=== PATIENT | male | born 1970 | race Caucasian/White ===

== ENCOUNTER 2016-11-15 15:16 | Emergency (ER) | payer MEDICARE ==
[~2016-11-15] VITALS: Ht 177.8 cm; Wt 89.3 kg
[~2016-11-15 15:16] MED LIST: AMOX875T2 PO; BACT2OIN10 TOP; BENA25CA2 PO; BENZ-52 PO; CETIRIZINE PO; CIPR-249 PO; CLON0.5T PO; COLA100C2 OR; Cogentin PO; FLUP10TA PO; FLUP25VL IM; FLUP5TA PO; KLON0.5T PO; MUPI30CR TOP; NICO21DI4 TD; PRED20TAB PO; PROAAER10 IN; RANI15TA PO; RISP4TAB OR; TRAZ50TA OR; TRAZ50TA11 PO; ZITH250T PO; [UNRECOGNIZED DRUG - CODE] TOP; [UNRECOGNIZED DRUG - CODE] TOP; [UNRECOGNIZED DRUG - OTHER] TOP; prolixin PO; prolixin decanoate IM
[2016-11-15 15:20] VITALS: BP 131/81
[2016-11-15] MEDS ORDERED: LOTR1CRE3 EXT (16:34)
[2016-11-15] MEDS ORDERED: LAMI1SPR EX (16:40)
== END 2016-11-15 17:49 | disposition home or self-care (01) ==
LOC: M ED 15:16
DX: B35.3 Tinea pedis (principal); Z76.0 Encounter for issue of repeat prescription; F41.9 Anxiety disorder, unspecified; F33.9 Major depressive disorder, recurrent, unspecified; F20.9 Schizophrenia, unspecified; F17.210 Nicotine dependence, cigarettes, uncomplicated; Z79.899 Other long term (current) drug therapy; Z88.8 Allergy status to other drugs, medicaments and biological substances

== ENCOUNTER 2016-12-01 04:43 | Inpatient (IN) | payer MEDICARE ==
[~2016-12-01 04:43] MED LIST changes: +LAMI1SPR EX; +LOTR1CRE3 EXT
[2016-12-01 07:08] LABS: MEAN CORPUSCULAR HEMOGLOBIN 31.1 pg (27.0-33.0); MEAN CORPUSCULAR HGB CONC 34.7 g/dl (32.0-36.5); MEAN CORPUSCULAR VOLUME 89.6 fl (80.0-96.0); RED CELL DISTRIBUTION WIDTH 13.1 % (11.5-14.5); WHITE BLOOD COUNT 15.9 K/mm3 (4.0-10.0)
[2016-12-01 07:27] LABS: ALBUMIN/GLOBULIN RATIO 1.29 (1.00-1.93); ALKALINE PHOSPHATASE 61 U/L (45-117); ALT/SGPT 14 U/L (12-78); ANION GAP 7 MEQ/L (8-16); AST/SGOT 13 U/L (15-37); BILIRUBIN,DIRECT 0.2 MG/DL (0.0-0.2); BILIRUBIN,TOTAL 1.2 MG/DL (0.2-1.0); BLOOD UREA NITROGEN 5 MG/DL (7-18); CALCIUM LEVEL 9.4 MG/DL (8.5-10.1); CARBON DIOXIDE LEVEL 28 MEQ/L (21-32); CHLORIDE LEVEL 102 MEQ/L (98-107); CREATININE FOR GFR 0.66 MG/DL (0.70-1.30); GLOMERULAR FILTRATION RATE > 60.0 (>60); GLUCOSE, FASTING 89 MG/DL (70-105); POTASSIUM SERUM 4.1 MEQ/L (3.5-5.1); SODIUM LEVEL 137 MEQ/L (136-145); TOTAL PROTEIN 7.1 GM/DL (6.4-8.2)
[2016-12-01] MEDS ORDERED: fluPHENAZine DECAN 25MG/ML 5ML VIAL (J2680) IM SCH (09:00)
[2016-12-01 09:53] LABS: METHADONE URINE NEGATIVE (NEGATIVE)
[2016-12-01 11:51] VITALS: BP 142/82
[2016-12-01] MEDS ORDERED: BENZTROPINE 2 MG TAB PO PRN (12:15)
[2016-12-01] MEDS ORDERED: LORazepam 2 MG TAB PO PRN (12:30)
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
[2016-12-01] MEDS ORDERED: MOM 30ML SUSPENSION UDC PO PRN (12:45)
[2016-12-01] MEDS ORDERED: traZODone 50 MG TAB PO PRN (12:45)
[2016-12-01] MEDS ORDERED: ACETAMINOPHEN TAB 650MG DOSE (2X325MG) PO PRN (12:45)
[2016-12-01] MEDS ORDERED: MAALOX 30 ML SUSP *UDC PO PRN (12:45)
[2016-12-01] MEDS: NICOTINE 21MG/24HR 1 EA TRANSDERMAL TD SCH (13:22)
[2016-12-01] MEDS: LOTRISONE CREAM 15 GM (BETAMETH/CLOTRIMAZOLE) TOP SCH (23:33)
[2016-12-02 06:31] VITALS: BP 130/60
[2016-12-02] MEDS: NICOTINE 21MG/24HR 1 EA TRANSDERMAL TD SCH (08:43)
[2016-12-02] MEDS: LOTRISONE CREAM 15 GM (BETAMETH/CLOTRIMAZOLE) TOP SCH ×2 (08:44→20:29)
[2016-12-02 18:00] VITALS: BP 117/81
[2016-12-03 07:00] VITALS: BP 103/57
[2016-12-03] MEDS: NICOTINE 21MG/24HR 1 EA TRANSDERMAL TD SCH (09:00)
[2016-12-03] MEDS: LOTRISONE CREAM 15 GM (BETAMETH/CLOTRIMAZOLE) TOP SCH ×2 (09:00→20:37)
[2016-12-03 18:00] VITALS: BP 116/79
--- NOTE | 2016-12-03 21:50 | HPE ---
DATE OF ADMISSION: 12/01/2016 HISTORY OF PRESENT ILLNESS: Please refer to psychiatric history and evaluation for further details on this admission. This examination and history is intended for medical issues, which may need treatment, followup or consult on this 46-year-old male. ALLERGIES: HALDOL. PRIMARY CARE PROVIDER: None currently. SOCIAL HISTORY: He is single, lives alone. He smokes 1-2 packs of cigarettes per day. Recreational drug use: Marijuana. LABORATORY STUDIES: WBC 15.9, hemoglobin 17.1, hematocrit 49.2, platelets 26.5. Electrolytes were normal. Total bilirubin was 1.2, direct bilirubin 0.2, BUN 5, creatinine 0.66. Urine was positive for marijuana. PAST MEDICAL HISTORY: Schizoaffective disorder. PAST SURGICAL HISTORY: Negative. HOME MEDICATIONS: - Cogentin 1 mg by mouth twice a day - trazodone 50 mg by mouth nightly as needed for insomnia - Prolixin 5 mg by mouth twice a day - Prolixin 37.5 mg intramuscularly (IM) every 2 weeks FAMILY HISTORY: Mother of unknown cancer. Father unknown age and unknown cause. He has siblings alive and well. REVIEW OF SYSTEMS: 10-system review was done. His only complaint was of a rash on both feet. Otherwise unremarkable. OBJECTIVE: 46-year-old cooperative male in no acute distress. Height 70 inches. Blood pressure 116/66, pulse 80, respirations 18, temperature 97.6. Patient is alert and oriented times three, slightly disheveled. Pupils equal and react to light. Extraocular muscles intact. Cornea and sclerae clear. Conjunctivae were normal. No facial asymmetry. Pharynx, tongue and gums pink and moist. Tongue is midline. Neck is supple without lymphadenopathy. No thyromegaly, no goiter. Carotids 2+ without bruit. Chest clear to auscultation without wheeze or retraction. Heart is regular. Abdomen is benign. Bowel sounds positive. Genitourinary/rectal: Not done. Extremities show equal strength, full range of motion. No cyanosis, clubbing or edema. Feet show bilateral red slightly vesicular rash on both feet, top of feet and between toes, no drainage. Peripheral pulses equal and palpable bilaterally. IMPRESSION/PLAN: 1. Psychiatric plan per psychiatry. 2. Tinea pedis bilaterally. Lotrisone cream bilaterally to rash on both feet twice a day after washing with soap and water and drying well. Monitor for improvement. 3. Nicotine patch offered. Baseline EKG pending.
--- NOTE | 2016-12-03 23:32 | IPN ---
DATE OF SERVICE: 12/02/2016 CHIEF COMPLAINT: Says feels better. SUBJECTIVE: Seen for followup in the presence of staff. Says feels better, was somewhat vague about it at times, but does say he had gone off his medications several months ago, says he felt he did not need them, and then began feeling ill, says feels more rested. Denies he was ever suicidal, though that is contrary to what has been seen per the emergency room record. MENTAL STATUS EXAMINATION: He is unkempt, somewhat superficially cooperative, is guarded, currently no agitation, no psychomotor retardation. Answers questions briefly, but logically, varied range of affect, fairly broad. At present does not appear to be internally preoccupied. Possibly deluded, though is not quite clear, seems paranoid. Cognition grossly intact. Judgment, insight remain poor. ASSESSMENT: Schizophrenia. PLAN: Continue current care and observations, and treatment, look at obtaining collateral information, engage him in treatment in the unit. He has been on Prolixin Decanoate in the past, this is being resumed here, he received an injection yesterday, for 37.5 mg daily. Oral Prolixin has also been started 5 mg twice a day. Further recommendations will be made depending on the clinical picture. I would suggest obtaining collateral information if possible. VITAL SIGNS: Blood pressure 130/60, pulse 74, temperature 99.
--- NOTE | 2016-12-03 23:41 | ECGEPIP ---
Stationary ECG Study [facility] Test Date: 2016-12-02 Pat Name: CODIE CABRALES Department: Room: [place] [address] Gender: M Technician Inventory Specialist: DANII : 1970 Requested By: Meli Anderson [facility] Order Number: [id number] Reading MD: Nigel Cooper Measurements Intervals [place] Rate: 75 P: 44 VA: 184 QRS: -12 QRSD: 104 T: 58 QT: 352 QTc: 395 Interpretive Statements SINUS RHYTHM COMPARED TO THE LAST 2 TRACINGS IN THE SYSTEM IN 2014, NO SIGNIFICANT CHANGES Electronically Signed On 12-03-2016 23:40:47 EDT by Nigel Cooper
[2016-12-04 07:22] VITALS: BP 113/72
[2016-12-04] MEDS: NICOTINE 21MG/24HR 1 EA TRANSDERMAL TD SCH (08:36)
[2016-12-04] MEDS: LOTRISONE CREAM 15 GM (BETAMETH/CLOTRIMAZOLE) TOP SCH ×2 (08:36→20:05)
--- NOTE | 2016-12-04 09:30 | IPN ---
DATE: 12/03/2016 CHIEF COMPLAINT: Says is doing well. SUBJECTIVE: Seen for followup in the presence of self, say feels better, more rested. Says had a good night sleep, had breakfast. MENTAL STATUS EXAMINATION: Guarded, but cooperative overall. Coherent. Gives short answers. No agitation. No psychomotor retardation. Currently does not appear internally preoccupied. Judgment remains compromised. Insight improved. ASSESSMENT: Schizophrenia. PLAN: Continue current care, including the Prolixin. Says he was off the Prolixin for a good few months, including injection, and that had been on the injections regularly prior to that, was being seen at the [facility]. Encourage participation and activities in the unit.
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
[2016-12-04 18:16] VITALS: BP 102/64
[2016-12-05 06:22] VITALS: BP 116/73
[2016-12-05] MEDS: LOTRISONE CREAM 15 GM (BETAMETH/CLOTRIMAZOLE) TOP SCH (08:33)
[2016-12-05] MEDS: NICOTINE 21MG/24HR 1 EA TRANSDERMAL TD SCH (08:33)
[2016-12-05] MEDS ORDERED: FLUP5TA PO (09:10)
[2016-12-05] MEDS ORDERED: TRAZO50TA PO (09:10)
[2016-12-05] MEDS ORDERED: FLUP25VL IM (09:10)
--- NOTE | 2016-12-05 15:15 | MHDSPDOC ---
[facility] Discharge Summary Discharge Summary DATE OF ADMISSION: Dec 01, 2016 at 10:28 DATE OF DISCHARGE: Dec 05, 2016 at 10:20 DISCHARGE DIAGNOSES: REASON FOR ADMISSION: pt presented to the ED very psychotic, illogical, nonsensical, disorganized asking for medication. Pt admitted due to potential danger to self or others. CONSULTANTS INVOLVED: lab, medicine, psychiatry. TREATMENT AND PROGRESS ON THE UNIT : The very first day pt accepted Prolixin dec 37.5 mg IM and took Prolixin 5 mg bid for the duration of his stay. He was pretty clear mentally by Sunday. He was far better than he was on Sunday when he talked about splitting the atom, being a lei knife and I'm inside of you. He slept well, took care of hygiene. Shaved face and head. He ate at meal time, did his laundry and adhered to the unit protocols. No behavior challenges. On Sunday he was able to supply information that we were not able to obtain on Sunday. Pt has a long h/o going off his psychiatric medications and decompensating into psychosis. He was educated on the need to remain consistent with medication and to keep his outpatient appts at [facility]. Pt says he should be more consistent as he lives right up the street from the clinic. Pt could not supply any names or address for us to obtain collateral information. he has no contact with his ex- and does not know if she is alive or not. He sees his daughter from [place] once a year. He is close to his downstairs neighbor but does not identify any other close friend. He is vague about how he spends his time, going to the store and hanging out. He denies use of alcohol but does smoke cannabis when available to him. Pt does not have the best housing arrangement per his statements but he declined offers to help with referrals to [facility] or other housing. Pt was offered a referral for addictions treatment related to cannabis dependency but he is not interested at this time. HOSPITAL COURSE: Pt received decanoate injection the first day of admission. he slept and took care of hygiene needs. he cleared rather quickly and was visible in the milieu. He identifies as a "loner" and was not observed interacting with peers. He was appropriate when interacting with staff and did attend some programming groups. Pts FOI and lose associations dissipated and he began to speak much more logically and sensibly. He became more reality based in his statements. He denies any statements that may cause one to think he was suicidal. He denies making suicide attempts in the past. Pt plans to return home where he lives alone and continue his usual routine. DISCHARGE ASSESSMENT: Pt was stabilized quickly and requested discharge immediately. He was found to be much more sane after 3 days on the unit and on medication. His decanoate is onboard and he has po prolixin to use as needed for psychosis. He stated he likes to have Prolixin on hand. We discussed other medications, other SAAVEDRA but he declined stating "Prolixin is what works for me". We reviewed s/s of EPS. he stated he does not like how he feels when he is on Cogentin. he did not want a prescription for Cogentin on discharge. he was offered Artane or Benadryl but he declined those as well. MENTAL STATUS EXAMINATION ON DISCHARGE: Patient is a 46-year old male, who appears older than age, bald head, clean shaven, wearing shorts and bright orange T-shirt. Appears clean and calm. Speech is clear spontaneous Language skills are intact Thought processes including: linear, he did not derail today as he did yesterday during our 1;1 conversation. Thought content: appropriate Abstract reasoning, and computation: good. Description of associations: good. Description of abnormal or psychotic thoughts: No SI or HI present, no longer hearing voices, no FOI or IOR, no delusions or somatic complaints. Judgment: limited Insight: limited. Orientation to person, place,situation and time. Recent and remote memory: intact. Attention span and concentration: adequate. Fund of knowledge: full. Mood: euthymic. Affect:congruent. MEDICATIONS ON DISCHARGE: -prolixin 5mg po prn psychosis, bid #14/5 -Prolixin Decanoate 37.5 mg IM q 14 days due on 12/15/16 -trazodone 50 mg po prn insomnia #7 with 5 refills. PLAN/FOLLOWUP ARRANGEMENTS: BENNY The amount of time spent in the coordination of care for this patient was approximately 30 minutes. Vital Signs/I&Os Vital Signs Date Time Temp Pulse Resp B/P (MAP) Pulse Ox O2 Delivery O2 Flow Rate FiO2 12/05/16 06:22 97.8 67 18 116/73 (87) 12/04/16 07:22 Room Air 12/01/16 11:23 98 Medications Scheduled Fluphenazine Decanoate (Fluphenazine Decanoate) 25 Mg/Ml Soln, 37.5 MG IM Q2WK for Thought Disorder, (Reported) Fluphenazine Decanoate (Fluphenazine Decanoate) 25 Mg/Ml Soln, 37.5 MG IM Q14D@ 09 for MOOD for 14 Days, #1 Last shot administered on December 01. Next injection due on December. Fluphenazine HCl (Fluphenazine HCl) 5 Mg Tab, 5 MG PO BID for Thought Disorder, (Reported) Fluphenazine HCl (Fluphenazine HCl) 5 Mg Tab, 5 MG PO BID for MOOD for 7 Days, # 14 take as needed for psychosis since the shot is ordered. If having psychosis take by mouth. Terbinafine HCl (Lamisil At [place]) 1 % Spr, 1 % EX DAILY for 14 Days, #1 Scheduled PRN Trazodone HCl (Trazodone HCl) 50 Mg Tab, 50 MG PO QHSP PRN for INSOMNIA, ( Reported) Trazodone HCl (Trazodone HCl) 50 Mg Tab, 50 MG PO QHSP PRN for INSOMNIA for 7 Days, #7 take as needed for insomnia Allergies Coded Allergies: Haloperidol (Verified Allergy, Unknown, 08/13/12) Aria Haq Dec 05, 2016 15:15
== END 2016-12-05 10:20 | disposition home or self-care (01) | DRG 885 ==
LOC: M ED 04:43 → M ED INP 10:28 → M PSY 11:45
PROVIDERS: ADMIT Psychiatry & Neurology Psychiatry; ATTEND Psychiatry & Neurology Psychiatry
DX: F20.0 Paranoid schizophrenia (principal); F17.210 Nicotine dependence, cigarettes, uncomplicated; F12.10 Cannabis abuse, uncomplicated; Z88.8 Allergy status to other drugs, medicaments and biological substances; Z79.899 Other long term (current) drug therapy; B35.3 Tinea pedis

== ENCOUNTER 2017-08-30 14:36 | Inpatient (IN) | payer MEDICARE, SELFPAY ==
[2017-08-30] MEDS: diphenhydrAMINE INJ 50MG/ML VIAL (J1200) IM (14:45)
[2017-08-30] MEDS: LORazepam 2 MG/ML VIAL (J2060) IM (14:45)
[2017-08-30] MEDS: OLANZapine INTRAMUSCULAR 10 MG VIAL (S0166) IM (14:45)
[2017-08-30 15:34] LABS: HEMATOCRIT 48.3 % (42.0-52.0); HEMOGLOBIN 16.5 g/dl (13.5-17.5); MEAN CORPUSCULAR HEMOGLOBIN 29.6 pg (27.0-33.0); MEAN CORPUSCULAR HGB CONC 34.2 g/dl (32.0-36.5); MEAN CORPUSCULAR VOLUME 86.6 fl (80.0-96.0); PLATELET COUNT, AUTOMATED 298 10^3/uL (150-450); RED BLOOD COUNT 5.58 10^6/uL (4.30-6.10); RED CELL DISTRIBUTION WIDTH 13.1 % (11.5-14.5)
[2017-08-30 16:08] LABS: ACETAMINOPHEN LEVEL < 2.0 UG/ML (10.0-30.0); ALBUMIN 3.9 GM/DL (3.2-5.2); ALBUMIN/GLOBULIN RATIO 1.15 (1.00-1.93); ALKALINE PHOSPHATASE 69 U/L (45-117); ALT/SGPT 20 U/L (12-78); ANION GAP 8 MEQ/L (8-16); AST/SGOT 14 U/L (7-37); BILIRUBIN,DIRECT 0.1 MG/DL (0.0-0.2); BILIRUBIN,TOTAL 0.8 MG/DL (0.2-1.0); BLOOD UREA NITROGEN 10 MG/DL (7-18); CALCIUM LEVEL 9.2 MG/DL (8.5-10.1); CARBON DIOXIDE LEVEL 27 MEQ/L (21-32); CHLORIDE LEVEL 107 MEQ/L (98-107); CREATININE FOR GFR 0.98 MG/DL (0.70-1.30); GLOMERULAR FILTRATION RATE > 60.0 (>60); GLUCOSE, FASTING 147 MG/DL (70-100); POTASSIUM SERUM 3.9 MEQ/L (3.5-5.1); SALICYLATE LEVEL < 1.7 MG/DL (5.0-30.0); SODIUM LEVEL 142 MEQ/L (136-145); THYROID STIMULATING HORMONE 0.814 uIU/ML (0.358-3.740); TOTAL PROTEIN 7.3 GM/DL (6.4-8.2)
[2017-08-30 16:12] LABS: ETHYL ALCOHOL (ETHANOL) < 0.003 % (0.000-0.010)
[2017-08-30 17:23] LABS: AMPHETAMINES LEVEL URINE NEGATIVE (NEGATIVE); BARBITURATES URINE NEGATIVE (NEGATIVE); BENZODIAZEPINES URINE NEGATIVE (NEGATIVE); CANNABINOIDS URINE POSITIVE (NEGATIVE); COCAINE METABOLITE URINE NEGATIVE (NEGATIVE); METHADONE URINE NEGATIVE (NEGATIVE); OPIATES URINE NEGATIVE (NEGATIVE); PHENCYCLIDINE URINE NEGATIVE (NEGATIVE)
[2017-08-30] MEDS ORDERED: MOM 30ML SUSPENSION UDC PO (18:30)
[2017-08-30] MEDS ORDERED: ACETAMINOPHEN TAB 650MG DOSE (2X325MG) PO (18:30)
[2017-08-30] MEDS ORDERED: MAALOX 30 ML SUSP *UDC PO (18:30)
[2017-08-30] MEDS ORDERED: traZODone 50 MG TAB PO (18:30)
[2017-08-31] MEDS: OLANZapine 5 MG TAB PO (09:32)
[2017-08-31] MEDS: diphenhydrAMINE 50 MG CAP PO (09:32)
[2017-08-31] MEDS: LORazepam 2 MG TAB PO (09:32)
[2017-08-31] MEDS ORDERED: OLANZapine ORAL DISINTEGRATING TAB 5MG PO (11:30)
[2017-08-31] MEDS ORDERED: diphenhydrAMINE 25 MG CAP PO (11:30)
[2017-08-31] MEDS: fluPHENAZine DECAN 25MG/ML 5ML VIAL (J2680) IM (13:06)
[2017-08-31] MEDS: BENZTROPINE 1 MG TAB PO ×2 (13:07→21:00)
[2017-09-01] MEDS: BENZTROPINE 1 MG TAB PO ×2 (09:00→20:49)
[2017-09-02] MEDS: BENZTROPINE 1 MG TAB PO ×2 (09:00→19:57)
[2017-09-02] MEDS: LORazepam 1 MG TAB PO (11:03)
[2017-09-02] MEDS: LORazepam 2 MG TAB PO ×2 (16:56→23:00)
[2017-09-02] MEDS: NICOTINE 21MG/24HR 1 EA TRANSDERMAL TD (17:56)
[2017-09-03] MEDS: NICOTINE 21MG/24HR 1 EA TRANSDERMAL TD (08:12)
[2017-09-03] MEDS: BENZTROPINE 1 MG TAB PO ×2 (08:13→20:42)
[2017-09-03 09:43] LABS: KETONE, URINE AUTO RFX NEGATIVE (NEGATIVE); LEUKOCYTE ESTERASE UR AUTO RFX NEGATIVE (NEGATIVE); NITRITE, URINE AUTO RFX NEGATIVE (NEGATIVE); RBC, URINE AUTO RFX 0 /HPF (0-3); SPECIFIC GRAVITY UR AUTO RFX 1.014 (1.002-1.035); SQUAM EPITHELIAL CELL UR AURFX 0 /HPF (0-6); WBC, URINE AUTO RFX 2 /HPF (0-3)
[2017-09-03] MEDS: LORazepam 2 MG TAB PO (17:39)
[2017-09-04] MEDS: BENZTROPINE 1 MG TAB PO (09:00)
[2017-09-04] MEDS: NICOTINE 21MG/24HR 1 EA TRANSDERMAL TD (09:00)
== END 2017-09-04 10:50 | disposition home or self-care (01) | DRG 885 ==
LOC: M ED 14:36 → M ED INP 18:29 → M PSY 19:12
DX: F20.0 Paranoid schizophrenia (principal); F12.90 Cannabis use, unspecified, uncomplicated; F41.9 Anxiety disorder, unspecified; F17.200 Nicotine dependence, unspecified, uncomplicated; D72.829 Elevated white blood cell count, unspecified; Z88.8 Allergy status to other drugs, medicaments and biological substances

== ENCOUNTER 2018-01-04 02:26 | Inpatient (IN) | payer MEDICARE, SELFPAY ==
[2018-01-04 02:44] LABS: HEMATOCRIT 43.7 % (42.0-52.0); MEAN CORPUSCULAR HEMOGLOBIN 29.9 pg (27.0-33.0); MEAN CORPUSCULAR HGB CONC 34.3 g/dl (32.0-36.5); MEAN CORPUSCULAR VOLUME 87.2 fl (80.0-96.0); PLATELET COUNT, AUTOMATED 324 10^3/uL (150-450); RED BLOOD COUNT 5.01 10^6/uL (4.30-6.10); RED CELL DISTRIBUTION WIDTH 12.7 % (11.5-14.5); WHITE BLOOD COUNT 21.3 10^3/uL (4.0-10.0)
[2018-01-04 03:06] LABS: AMPHETAMINES LEVEL URINE NEGATIVE (NEGATIVE); BARBITURATES URINE NEGATIVE (NEGATIVE); BENZODIAZEPINES URINE NEGATIVE (NEGATIVE); CANNABINOIDS URINE POSITIVE (NEGATIVE); COCAINE METABOLITE URINE NEGATIVE (NEGATIVE); METHADONE URINE NEGATIVE (NEGATIVE); OPIATES URINE NEGATIVE (NEGATIVE); PHENCYCLIDINE URINE NEGATIVE (NEGATIVE)
[2018-01-04 03:14] LABS: ALBUMIN 4.2 GM/DL (3.2-5.2); ALBUMIN/GLOBULIN RATIO 1.24 (1.00-1.93); ALKALINE PHOSPHATASE 83 U/L (45-117); ALT/SGPT 22 U/L (12-78); ANION GAP 12 MEQ/L (8-16); AST/SGOT 25 U/L (7-37); BILIRUBIN,DIRECT 0.3 MG/DL (0.0-0.2); BILIRUBIN,TOTAL 1.2 MG/DL (0.2-1.0); BLOOD UREA NITROGEN 13 MG/DL (7-18); CALCIUM LEVEL 9.4 MG/DL (8.5-10.1); CARBON DIOXIDE LEVEL 27 MEQ/L (21-32); CHLORIDE LEVEL 102 MEQ/L (98-107); CREATININE FOR GFR 1.03 MG/DL (0.70-1.30); ETHYL ALCOHOL (ETHANOL) 0.004 % (0.000-0.010); GLOMERULAR FILTRATION RATE > 60.0 (>60); GLUCOSE, FASTING 128 MG/DL (70-100); POTASSIUM SERUM 3.5 MEQ/L (3.5-5.1); SALICYLATE LEVEL < 1.7 MG/DL (5.0-30.0); SODIUM LEVEL 141 MEQ/L (136-145); TOTAL PROTEIN 7.6 GM/DL (6.4-8.2)
[2018-01-04 03:15] LABS: ACETAMINOPHEN LEVEL < 2.0 UG/ML (10.0-30.0)
[2018-01-04] MEDS ORDERED: traZODone 50 MG TAB PO (04:30)
[2018-01-04] MEDS ORDERED: MAALOX 30 ML SUSP *UDC PO (04:30)
[2018-01-04] MEDS ORDERED: OLANZapine ORAL DISINTEGRATING TAB 5MG PO (04:30)
[2018-01-04] MEDS ORDERED: NICOTINE 21MG/24HR 1 EA TRANSDERMAL TD (04:30)
[2018-01-05] MEDS: fluPHENAZine DECAN 25MG/ML 5ML VIAL (J2680) IM (07:54)
[2018-01-06] MEDS: MOM 30ML SUSPENSION UDC PO (13:40)
[2018-01-06] MEDS: ACETAMINOPHEN TAB 650MG DOSE (2X325MG) PO (21:32)
[2018-01-06] MEDS: IBUPROFEN 800 MG TAB PO (22:37)
[2018-01-07] MEDS: ACETAMINOPHEN TAB 650MG DOSE (2X325MG) PO (11:08)
[2018-01-07] MEDS: IBUPROFEN 800 MG TAB PO ×2 (12:37→18:29)
[2018-01-07] MEDS: MAGNESIUM CITRATE 300 ML BTL PO (12:58)
[2018-01-07 16:27] LABS: APPEARANCE, URINE CLEAR (CLEAR); BACTERIA, URINE AUTO NEGATIVE (NEGATIVE); BILIRUBIN, URINE AUTO NEGATIVE (NEGATIVE); BLOOD, URINE BLOOD NEGATIVE (NEGATIVE); COLOR, URINE STRAW (YELLOW); GLUCOSE, URINE (UA) AUTO NEGATIVE (NEGATIVE); KETONE, URINE AUTO NEGATIVE (NEGATIVE); LEUKOCYTE ESTERASE, URINE AUTO NEGATIVE (NEGATIVE); MUCUS, URINE SMALL (NEGATIVE); NITRITE, URINE AUTO NEGATIVE (NEGATIVE); PROTEIN, URINE AUTO NEGATIVE (NEGATIVE); RBC, URINE AUTO 0 /HPF (0-3); SPECIFIC GRAVITY URINE AUTO 1.003 (1.002-1.035); SQUAMOUS EPITHELIAL CELL UR AU 0 /HPF (0-6); UROBILINOGEN, URINE AUTO 0.2 mg/dL (0.0-2.0); WBC, URINE AUTO 1 /HPF (0-3)
[2018-01-08] MEDS: IBUPROFEN 800 MG TAB PO ×3 (06:40→20:19)
[2018-01-09] MEDS: IBUPROFEN 800 MG TAB PO (06:44)
== END 2018-01-09 13:00 | disposition home or self-care (01) | DRG 885 ==
LOC: M ED 02:26 → M ED INP 04:19 → M PSY 05:33
DX: F20.0 Paranoid schizophrenia (principal); F12.90 Cannabis use, unspecified, uncomplicated; F17.200 Nicotine dependence, unspecified, uncomplicated; D72.829 Elevated white blood cell count, unspecified

== ENCOUNTER 2018-02-04 10:17 | Inpatient (IN) | payer MEDICARE, MEDICAID, SELFPAY ==
[2018-02-04 11:18] LABS: HEMATOCRIT 45.3 % (42.0-52.0); HEMOGLOBIN 15.4 g/dl (13.5-17.5); MEAN CORPUSCULAR VOLUME 88.3 fl (80.0-96.0); PLATELET COUNT, AUTOMATED 267 10^3/uL (150-450); RED BLOOD COUNT 5.13 10^6/uL (4.30-6.10); RED CELL DISTRIBUTION WIDTH 13.2 % (11.5-14.5); WHITE BLOOD COUNT 8.1 10^3/uL (4.0-10.0)
[2018-02-04 11:54] LABS: AMPHETAMINES LEVEL URINE NEGATIVE (NEGATIVE); BARBITURATES URINE NEGATIVE (NEGATIVE); BENZODIAZEPINES URINE NEGATIVE (NEGATIVE); CANNABINOIDS URINE POSITIVE (NEGATIVE); COCAINE METABOLITE URINE NEGATIVE (NEGATIVE); METHADONE URINE NEGATIVE (NEGATIVE); OPIATES URINE NEGATIVE (NEGATIVE); PHENCYCLIDINE URINE NEGATIVE (NEGATIVE)
[2018-02-04 12:06] LABS: ALBUMIN 4.1 GM/DL (3.2-5.2); ALBUMIN/GLOBULIN RATIO 1.14 (1.00-1.93); ALKALINE PHOSPHATASE 69 U/L (45-117); ALT/SGPT 16 U/L (12-78); ANION GAP 5 MEQ/L (8-16); AST/SGOT 15 U/L (7-37); BILIRUBIN,DIRECT 0.2 MG/DL (0.0-0.2); BILIRUBIN,TOTAL 0.7 MG/DL (0.2-1.0); BLOOD UREA NITROGEN 10 MG/DL (7-18); CALCIUM LEVEL 9.3 MG/DL (8.5-10.1); CARBON DIOXIDE LEVEL 30 MEQ/L (21-32); CHLORIDE LEVEL 100 MEQ/L (98-107); CREATININE FOR GFR 0.78 MG/DL (0.70-1.30); ETHYL ALCOHOL (ETHANOL) < 0.003 % (0.000-0.010); GLOMERULAR FILTRATION RATE > 60.0 (>60); GLUCOSE, FASTING 104 MG/DL (70-100); POTASSIUM SERUM 4.8 MEQ/L (3.5-5.1); SALICYLATE LEVEL 3.9 MG/DL (5.0-30.0); SODIUM LEVEL 135 MEQ/L (136-145); THYROID STIMULATING HORMONE 0.377 uIU/ML (0.358-3.740); TOTAL PROTEIN 7.7 GM/DL (6.4-8.2)
[2018-02-04 12:07] LABS: ACETAMINOPHEN LEVEL < 2.0 UG/ML (10.0-30.0)
[2018-02-04] MEDS ORDERED: MOM 30ML SUSPENSION UDC PO (15:30)
[2018-02-04] MEDS ORDERED: traZODone 50 MG TAB PO (15:30)
[2018-02-04] MEDS ORDERED: OLANZapine ORAL DISINTEGRATING TAB 5MG PO (15:30)
[2018-02-04] MEDS ORDERED: MAALOX 30 ML SUSP *UDC PO (15:30)
[2018-02-04] MEDS ORDERED: LORazepam 1 MG TAB PO (17:15)
[2018-02-04] MEDS: NICOTINE 21MG/24HR 1 EA TRANSDERMAL TD (17:35)
[2018-02-05] MEDS: ACETAMINOPHEN TAB 650MG DOSE (2X325MG) PO ×2 (09:00→15:10)
[2018-02-05] MEDS: NICOTINE 21MG/24HR 1 EA TRANSDERMAL TD (09:00)
[2018-02-05 10:23] LABS: KETONE, URINE AUTO RFX NEGATIVE (NEGATIVE); LEUKOCYTE ESTERASE UR AUTO RFX NEGATIVE (NEGATIVE); MUCUS, URINE RFX SMALL (NEGATIVE); NITRITE, URINE AUTO RFX NEGATIVE (NEGATIVE); RBC, URINE AUTO RFX 0 /HPF (0-3); SPECIFIC GRAVITY UR AUTO RFX 1.008 (1.002-1.035); SQUAM EPITHELIAL CELL UR AURFX 0 /HPF (0-6); WBC, URINE AUTO RFX 0 /HPF (0-3)
[2018-02-05 11:02] LABS: HEMATOCRIT 49.3 % (42.0-52.0); HEMOGLOBIN 16.7 g/dl (13.5-17.5); MEAN CORPUSCULAR HEMOGLOBIN 30.5 pg (27.0-33.0); MEAN CORPUSCULAR HGB CONC 33.9 g/dl (32.0-36.5); PLATELET COUNT, AUTOMATED 298 10^3/uL (150-450); RED BLOOD COUNT 5.48 10^6/uL (4.30-6.10); RED CELL DISTRIBUTION WIDTH 13.4 % (11.5-14.5); WHITE BLOOD COUNT 11.3 10^3/uL (4.0-10.0)
[2018-02-05 11:44] LABS: ALBUMIN 4.4 GM/DL (3.2-5.2); ALBUMIN/GLOBULIN RATIO 1.22 (1.00-1.93); ALKALINE PHOSPHATASE 75 U/L (45-117); ALT/SGPT 17 U/L (12-78); ANION GAP 7 MEQ/L (8-16); AST/SGOT 13 U/L (7-37); BILIRUBIN,TOTAL 0.8 MG/DL (0.2-1.0); BLOOD UREA NITROGEN 10 MG/DL (7-18); CALCIUM LEVEL 9.9 MG/DL (8.5-10.1); CARBON DIOXIDE LEVEL 31 MEQ/L (21-32); CHLORIDE LEVEL 101 MEQ/L (98-107); CREATININE FOR GFR 0.94 MG/DL (0.70-1.30); GLOMERULAR FILTRATION RATE > 60.0 (>60); GLUCOSE, FASTING 61 MG/DL (70-100); LIPASE 141 U/L (73-393); POTASSIUM SERUM 4.4 MEQ/L (3.5-5.1); SODIUM LEVEL 139 MEQ/L (136-145)
[2018-02-05] MEDS: fluPHENAZine DECAN 25MG/ML 5ML VIAL (J2680) IM (12:16)
[2018-02-06] MEDS: NICOTINE 21MG/24HR 1 EA TRANSDERMAL TD (08:16)
[2018-02-06] MEDS: ACETAMINOPHEN TAB 650MG DOSE (2X325MG) PO (08:49)
== END 2018-02-06 12:05 | disposition home or self-care (01) | DRG 885 ==
LOC: M PSY 02-06 04:05 → M ED 10:17 → M ED INP 15:27 → M PSY 16:33
DX: F20.0 Paranoid schizophrenia (principal); Z79.899 Other long term (current) drug therapy; Z88.8 Allergy status to other drugs, medicaments and biological substances; F17.200 Nicotine dependence, unspecified, uncomplicated; M54.5 Low back pain

== ENCOUNTER 2019-03-03 16:21 | Emergency (ER) | payer MEDICAID, MEDICARE ==
[~2019-03-03] VITALS: Ht 177.8 cm; Wt 87.3 kg
[~2019-03-03 16:21] MED LIST changes: +APAP325T4 PO; -CLON0.5T PO; +CLON0.5T8 PO; +NICO21PAT TD; +TRAZ-252; +TRAZ-252 PO; +TRAZ1TAB10 PO; -TRAZ50TA11 PO
[2019-03-03] MEDS ORDERED: GABA-845 (16:28)
--- NOTE | 2019-03-03 17:15 | REP ---
Two-view chest: 03/03/2019. Indication: Cough. Comparison: 01/04/2018. Findings: The lungs are clear. There is no pleural effusion or pneumothorax. The cardiomediastinal silhouette is unremarkable. Impression: Clear lungs. Electronically Signed by Donny Reid DO 03/03/2019 05:06 P
[2019-03-03] MEDS ORDERED: NS 1,000 ML IV ONE (20:00)
[2019-03-03 20:31] LABS: HEMATOCRIT 50.1 % (42.0-52.0); MEAN CORPUSCULAR HEMOGLOBIN 30.5 pg (27.0-33.0); MEAN CORPUSCULAR HGB CONC 33.9 g/dl (32.0-36.5); MEAN CORPUSCULAR VOLUME 89.9 fl (80.0-96.0); PLATELET COUNT, AUTOMATED 321 10^3/uL (150-450); RED BLOOD COUNT 5.57 10^6/uL (4.30-6.10); WHITE BLOOD COUNT 13.1 10^3/uL (4.0-10.0)
[2019-03-03 20:44] LABS: INR 1.06; PROTHROMBIN TIME 13.6 SECONDS (11.8-14.0)
[2019-03-03 20:44] LABS: INFLUENZA A AMPLIFICATION NEGATIVE (NEGATIVE); INFLUENZA B AMPLIFICATION NEGATIVE (NEGATIVE)
[2019-03-03 20:45] LABS: PARTIAL THROMBOPLASTIN TIME 33.4 SECONDS (25.0-38.4)
[2019-03-03 21:01] LABS: ALBUMIN 4.5 GM/DL (3.2-5.2); ALT/SGPT 15 U/L (12-78); BILIRUBIN,DIRECT 0.1 MG/DL (0.0-0.2); BILIRUBIN,TOTAL 0.9 MG/DL (0.2-1.0); CK-MB VALUE MASS < 1.0 NG/ML (<3.6); CPK CREATINE PHOSPHOKINASE 79 U/L (39-308); LIPASE 77 U/L (73-393); MB/CK RELATIVE INDEX 1.27 (< OR =4); NT-PRO BNP 9 PG/ML (<125); THYROID STIMULATING HORMONE 0.762 uIU/ML (0.358-3.740); TROPONIN I < 0.02 NG/ML (< 0.10)
[2019-03-03 21:46] VITALS: BP 129/79
[2019-03-03] MEDS ORDERED: ISOVUE-370 76% 100ML VIAL (Q9967) As Ordered ONE (21:49)
--- NOTE | 2019-03-04 09:17 | REP ---
CT ABDOMEN AND PELVIS WITHOUT CONTRAST: CT abdomen and pelvis performed without oral or IV contrast. Sagittal and coronal reconstruction images are performed. Visualized lung bases are clear. The liver, spleen, adrenals, pancreas and kidneys are grossly unremarkable. There is no evidence of hydroureteronephrosis. No renal or ureteral calculus is seen. Gallbladder is grossly unremarkable. There is no gross biliary dilatation. Abdominal aorta is normal in caliber with minimal atherosclerotic calcifications. There is no adenopathy. There is no free air or free fluid. There is no bowel wall thickening. The appendix is normal. There is no pelvic mass. The urinary bladder is grossly unremarkable. There are mild degenerative changes of the spine. IMPRESSION: No acute abnormality is detected. Preliminary report provided by [facility] at the time of the exam. Electronically Signed by Torey Bazan MD 03/05/2019 11:40 A
--- NOTE | 2019-03-04 10:11 | ECGEPIP ---
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
--- NOTE | 2019-03-04 13:35 | REP ---
CT brain: 2018. Indication: Dizziness. Comparison: None. Technique: Unenhanced axial CT images of the brain were obtained from skull base to vertex. Findings: There is no acute intracranial hemorrhage, acute cortical infarction, mass effect, hydrocephalus or significant fluid within the visualized paranasal sinuses/mastoid air cells. Impression: No acute intracranial process. Electronically Signed by Donny Reid DO 03/04/2019 01:27 P
== END 2019-03-03 22:44 | disposition left against medical advice (07) ==
LOC: M ED 16:21
DX: H92.01 Otalgia, right ear (principal); F33.9 Major depressive disorder, recurrent, unspecified; F41.9 Anxiety disorder, unspecified; F20.9 Schizophrenia, unspecified; Z88.8 Allergy status to other drugs, medicaments and biological substances; F17.210 Nicotine dependence, cigarettes, uncomplicated

== ENCOUNTER 2019-10-08 05:22 | Inpatient (IN) | payer MEDICARE, MEDICAID ==
[~2019-10-08] VITALS: Ht 172.7 cm; Wt 88.9 kg
[~2019-10-08 05:22] MED LIST changes: +CLON0.5T2 PO; -CLON0.5T8 PO; -FLUP10TA PO; +FLUP10TA11 PO; +GABA-845; +[UNRECOGNIZED DRUG - CODE]
[2019-10-08 06:05] LABS: HEMATOCRIT 46.4 % (42.0-52.0); HEMOGLOBIN 15.7 g/dl (13.5-17.5); MEAN CORPUSCULAR HGB CONC 33.8 g/dl (32.0-36.5); MEAN CORPUSCULAR VOLUME 88.7 fl (80.0-96.0); PLATELET COUNT, AUTOMATED 284 10^3/uL (150-450); RED BLOOD COUNT 5.23 10^6/uL (4.30-6.10); WHITE BLOOD COUNT 13.4 10^3/uL (4.0-10.0)
[2019-10-08 06:18] LABS: AMPHETAMINES LEVEL URINE NEGATIVE (NEGATIVE); BARBITURATES URINE NEGATIVE (NEGATIVE); BENZODIAZEPINES URINE NEGATIVE (NEGATIVE); CANNABINOIDS URINE POSITIVE (NEGATIVE); COCAINE METABOLITE URINE NEGATIVE (NEGATIVE); METHADONE URINE NEGATIVE (NEGATIVE); OPIATES URINE NEGATIVE (NEGATIVE); PHENCYCLIDINE URINE NEGATIVE (NEGATIVE)
[2019-10-08 06:32] LABS: ACETAMINOPHEN LEVEL < 2.0 UG/ML (10.0-30.0); ALT/SGPT 19 U/L (12-78); BILIRUBIN,DIRECT 0.4 MG/DL (0.0-0.2); BILIRUBIN,TOTAL 2.1 MG/DL (0.2-1.0); BLOOD UREA NITROGEN 11 MG/DL (7-18); CALCIUM LEVEL 9.1 MG/DL (8.5-10.1); CARBON DIOXIDE LEVEL 28 MEQ/L (21-32); CHLORIDE LEVEL 107 MEQ/L (98-107); CREATININE FOR GFR 0.87 MG/DL (0.70-1.30); ETHYL ALCOHOL (ETHANOL) < 0.003 % (0.000-0.010); GLOMERULAR FILTRATION RATE > 60.0 (>56); GLUCOSE, FASTING 121 MG/DL (70-100); POTASSIUM SERUM 3.8 MEQ/L (3.5-5.1); SALICYLATE LEVEL < 1.7 MG/DL (5.0-30.0); SODIUM LEVEL 140 MEQ/L (136-145); THYROID STIMULATING HORMONE 0.883 uIU/ML (0.358-3.740); TOTAL PROTEIN 7.2 GM/DL (6.4-8.2)
[2019-10-08] MEDS ORDERED: MAALOX 30 ML SUSP *UDC PO PRN (12:00)
[2019-10-08 13:43] VITALS: BP 119/63
[2019-10-08] MEDS: NICOTINE 21MG/24HR 1 EA TRANSDERMAL TD SCH (14:48)
--- NOTE | 2019-10-08 19:43 | HPEPDOC ---
[facility] Medical History & Physical Date of Admission October 08, 2019 Date of Service: October 08, 2019 Attending Physician: NATALIIA CASTANEDA MD History and Physical Chief complaint: Psychosis HPI: 49yo M with a history schizophrenia who is admitted to [facility] for psychosis. When I attempted to speak with the patient he was standing in the hallway making growling noises. RN and I attempted to invite him and lead him to the exam room which he declined and made growling noises when we asked him questions. Work up in the ED was otherwise unremarkable with WBC of 13 which is close to his baseline of mild leukocytosis and only other notable finding was +marijuana on tox screen. Past Medical History: Schizophrenia History of psychosis Anxiety Depression History of back spasms Family History per EMR Mother: , cancer Father: , unknown Siblings: Alive, well Social History per EMR -current smoker -marijuana Review of Systems: Unable to review Physical Examination Patient refused physical exam but can note that his gait was normal, face had no droop, speech was clear without dysarthia when he did speak clearly and he appeared deshelved but well developed and nourished. Laboratory Data: Reviewed Assessment: 49 year old M admitted for psychosis with medicine consulted for medical history and physical. Plan: Psychosis with a history of schizophrenia and marijuana use -As per psychiatry. No other identified acute medical issues at this time. Medicine will sign off. I f needed please reconsult. Vital Signs Vital Signs Date Time Temp Pulse Resp B/P (MAP) Pulse Ox O2 Delivery O2 Flow Rate FiO2 10/08/19 13:43 98.1 95 16 119/63 (81) 97 Room Air Laboratory Data Labs 24H Laboratory Tests 2 10/08/19 05:42: Urine Opiates Screen NEGATIVE, Urine Methadone Screen NEGATIVE, Urine Barbiturates Screen NEGATIVE, Urine Phencyclidine Screen NEGATIVE, Urine Amphetamines Screen NEGATIVE, Urine Benzodiazepines Screen NEGATIVE, Urine Cocaine Metabolite Screen NEGATIVE, Urine Cannabinoids Screen POSITIVEH 10/08/19 05:44: Nucleated Red Blood Cells % (auto) 0.0, Anion Gap 5L, Glomerular Filtration Rate > 60.0, Calcium Level 9.1, Total Bilirubin 2.1H, Direct Bilirubin 0.4H, Aspartate Amino Transf (AST/SGOT) 16, Alanine Aminotransferase (ALT/SGPT) 19, Alkaline Phosphatase 67, Total Protein 7.2, Albumin 4.0, Albumin/Globulin Ratio 1.3, Thyroid Stimulating Hormone (TSH) 0.883, Salicylates Level < 1.7L, Acetaminophen Level < 2.0L, Ethyl Alcohol Level < 0.003 CBC/BMP Laboratory Tests 10/08/19 05:44 Home Medications Unable to Obtain Active Prescriptions or Reported Meds Allergies Coded Allergies: haloperidol (Verified Allergy, Severe, BOUNCES OFF OG, 03/03/19) A-FIB/CHADSVASC A-FIB History Current/History of A-Fib/PAF?: No Current PO Anticoag Therapy: No Age/Risk Factor Scoring CHADSVASC: CHADSVASC Response (Comments) Value Age Risk Factor Age < 65 years old 0 Gender Risk Factor Male 0 Hx of CHF No 0 Hx of HTN No 0 Hx of Stroke/TIA/or VTE No 0 Hx of Diabetes No 0 Hx of Vascular Disease No 0 Total 0 Treatment Treatment ordered: NONE Reason Anticoagulant not given: Not indicated/[id number] NATALIIA CASTANEDA MD October 08, 2019 19:43
[2019-10-09 05:54] VITALS: BP 146/75
[2019-10-09] MEDS: NICOTINE 21MG/24HR 1 EA TRANSDERMAL TD SCH (08:32)
--- NOTE | 2019-10-09 10:18 | MHHPEPDOC ---
General Date Of Admission: October 08, 2019 Legal Status: 9.39 Chief Complaint "Stuff" History of Present Illness The patient a 49-year-old man with a long history of schizophrenia presents after becoming bizarre and paranoid, making various growling sounds. He is admitted as he is bizarre or paranoid and unable to take terms of. When the patient is met with he was more converse of after being restarted on pr eviously effective Prolixin, he was generally guarded and engaged very minimally in the interview, stating that he was "fine". But generally did not admit to any other symptoms. Psychiatric Review of Systems Psychosis: paranoia, disorganization Past Psychiatric History Previous Psychiatric Diagnosis: schizophrenia. Previous Psychiatric Admissions: last in May 2019. Suicide Attempts: none noted. Psychiatric Follow-up: none currently. Psychiatric medications: not on currently, previously Prolixin. Past Medical History Medical Problems No changes from previous Family Medical/Psychiatric HX Medical Problems Unclear at this time. Addiction History other (Negative urine toxicology on admission.) Social History Current Living Situation: lives alone. Education: unclear complete high school. Employment: unemployed. Social Support: few. Legal: previous police involvements due to behavior. Marital: unmarried at this time. Mental Status Examination General Appearance: disheveled Build: thin Demeanor: mistrustful Eye Contact: intense Activity: anxious Behavior: uncooperative Speech: clear Affect: flat Thought Process: incoherent Thought Content (Delusions): denies SI, HI, AVH Thought Content (Other): preoccupied Oriented: Alert Insight: poor Judgment: Poor Psychosis: Denies A-FIB/CHADSVASC A-FIB History Current/History of A-Fib/PAF?: No Assessment 49-year-old man with history of schizophrenia presents decompensated and bizarre, he would likely need to be resumed on his previously effective Prolixin and he will likely result quickly. Problem List Problems: (1) Schizo affective schizophrenia Status: Acute Response to Treatment: Uncontrolled Discussed With: Nurse Problem Specific Plan: Monitor Clinically Problem Text: Increase Prolixin to 10 mg BID (2) Non compliance with medical treatment Status: Chronic Response to Treatment: Uncontrolled Problem Specific Plan: Monitor Clinically Initial Treatment Plan 1. Patient was admitted on a [9.39] status. 2. Complete history was obtained. 3. With patients permission, family will be contacted and database will be expanded. 4. Patients medication regimen will be reviewed and changed accordingly. 5. Patient will be provided with protected environment. 6. Patient will be treated with individual, group, and milieu therapies. 7. Patient will receive supportive psych-education. 8. Discharge planning will commence immediately. 9. Outpatient follow-up treatment will be strongly recommended. 10. The initial treatment plan will focus initially on: * Altered thoughts ESTIMATED LENGTH OF STAY: 2-5 DAYS. TIME SPENT COUNSELING AND COORDINATING INITIAL CARE: 70 mins with greater than 50% of time on c/c Vital Signs Vital Signs Date Time Temp Pulse Resp B/P (MAP) Pulse Ox O2 Delivery O2 Flow Rate FiO2 10/09/19 07:55 Room Air 10/09/19 05:54 98.8 108 20 146/75 (98) 97 Medications Unable to Obtain Active Prescriptions or Reported Meds Allergies Coded Allergies: haloperidol (Verified Allergy, Severe, BOUNCES OFF OG, 03/03/19) ALEJANDRO CONNER DO October 09, 2019 10:18
[2019-10-09] MEDS: traZODone 50 MG TAB PO PRN (21:36)
[2019-10-10] MEDS: traZODone 50 MG TAB PO PRN (01:19)
[2019-10-10] MEDS: NICOTINE 21MG/24HR 1 EA TRANSDERMAL TD SCH ×2 (08:36→14:26)
--- NOTE | 2019-10-10 09:17 | MHIPNPDOC ---
[facility] Progress Note Progress Note DATE OF SERVICE: 10/10/19 Patient met with today. He generally stares the screen talking in a low voice, saying "I know where you live.", He appears to be joking in general, but is still quite distorted and psychotic. He is not been taking his medications and has been isolative to his room. Although he has had no behavioral problems. Vital Signs Vital Signs Date Time Temp Pulse Resp B/P (MAP) Pulse Ox O2 Delivery O2 Flow Rate FiO2 10/09/19 07:55 Room Air 10/09/19 05:54 98.8 108 20 146/75 (98) 97 Current Medications Current Medications Medications (Trade) Dose Ordered Sig/Dylan Route PRN Reason Start Time Stop Time Status Last Admin Dose Admin Acetaminophen (Tylenol Tab) 650 mg Q6HP PRN PO HEADACHE or DISCOMFORT 10/08/19 12:00 Al Hydrox/Mg Hydrox/Simethicone (Mylanta) 30 ml Q4HP PRN PO HEARTBURN/INDIGESTION 10/08/19 12:00 Fluphenazine HCl (Prolixin) 5 mg BID PO 10/08/19 09:00 10/09/19 10:52 DC 10/09/19 08:33 Fluphenazine HCl (Prolixin) 10 mg BID PO 10/09/19 21:00 Home Med (Med Rec Complete!) ASDIRECTED XX 10/08/19 09:15 10/08/19 09:11 DC Nicotine (Nicoderm Cq 21mg) 1 patch DAILY TD 10/08/19 09:00 Olanzapine (ZyPREXA ZYDIS) 5 mg Q4HP PRN PO AGITATION 10/08/19 12:00 Trazodone HCl (Desyrel) 50 mg QHSP PRN PO INSOMNIA 10/08/19 12:00 Allergies Coded Allergies: haloperidol (Verified Allergy, Severe, BOUNCES OFF OG, 03/03/19) Review of Systems Review of Systems General: Reports: ROS Unobtainable Mental Status Examination General Appearance: unkempt Build: average Demeanor: preoccupied Eye Contact: intense Activity: slowed Behavior: cooperative Speech: rapid Mood: euphoric Affect: inappropriate Thought Process: incoherent Thought Content (Delusions): grandiose, bizarre Thought Content (Other): unable to elaborate Cognition(Intelligence Est.): average Oriented: Awake, Alert Insight: poor Judgment: Poor Psychosis: Psychotic Perceptions Assessment 49-year-old man with a history of schizophrenia presents for follow-up, he is not been taking his medications and will likely need to be observed longer, once he takes his medications used to results quite quickly. Problem List Problems: (1) Schizophrenia Status: Acute Response to Treatment: Uncontrolled Problem Text: Continue to offer Prolixin 10 mg BID (2) Cannabis abuse Status: Chronic Problem Specific Plan: Monitor Clinically Vital Signs Vital Signs Date Time Temp Pulse Resp B/P (MAP) Pulse Ox O2 Delivery O2 Flow Rate FiO2 10/09/19 07:55 Room Air 10/09/19 05:54 98.8 108 20 146/75 (98) 97 Medications Unable to Obtain Active Prescriptions or Reported Meds ALEJANDRO CONNER DO October 10, 2019 09:17
[2019-10-11] MEDS: NICOTINE 21MG/24HR 1 EA TRANSDERMAL TD SCH (08:06)
[2019-10-11] MEDS: OLANZapine ORAL DISINTEGRATING TAB 5MG PO PRN (17:02)
[2019-10-12] MEDS: NICOTINE 21MG/24HR 1 EA TRANSDERMAL TD SCH ×2 (09:00→11:40)
[2019-10-12] MEDS: OLANZapine ORAL DISINTEGRATING TAB 5MG PO PRN (11:39)
[2019-10-12 16:49] VITALS: BP 124/76
[2019-10-12] MEDS: traZODone 50 MG TAB PO PRN (22:09)
[2019-10-13] MEDS: NICOTINE 21MG/24HR 1 EA TRANSDERMAL TD SCH (08:08)
--- NOTE | 2019-10-13 08:13 | MHIPN ---
DATE: 10/11/2019 This is a telemedicine video assessment. It is being done because of the virus pandemic, she is aware of it. CHIEF COMPLAINT: Says is doing okay. SUBJECTIVE: Seen for followup in the presence of staff. Says he is doing okay, but on any further inquiry, replies "you tell me" and then after a little while, a short while, tends to make hand gestures and then takes the sheet off his bed, and wraps it around his own body, like a shawl or a blanket, and then his statements are not in keeping with what is asked, and displays some disorganized thoughts. MENTAL STATUS EXAMINATION: He is neat. He is guarded. Somewhat easily irritated. Some disorganization of thoughts. Affect displays mild irritability. Denies any thoughts of harming himself. Displays paranoia. No fluctuation of consciousness. Judgment and insight are quite questionable. ASSESSMENT: Schizophrenia. PLAN: Continue attempting to persuade the patient to engage and to take medicines, he has so far refused, has been offered Prolixin 10 mg twice a day. Did take olanzapine 5 mg on one occasion earlier today. Continue present precautions and monitoring. VITAL SIGNS: Blood pressure 146/75, pulse 108, temperature 98.8.
--- NOTE | 2019-10-13 13:54 | MHIPN ---
DATE: 10/12/2019 This is a video assessment, for followup. He is seen in the presence of staff. CHIEF COMPLAINT: Offers no complaints, shrugs his shoulders. SUBJECTIVE: Seen for followup. When asked how he is doing, shrugged his shoulders, and then gets irritated, then suggests that he is okay, and then insistent on why he is being asked these questions, and he says that we can tell how he is doing. MENTAL STATUS EXAMINATION: Neat. Easily irritated and uncooperative. Had difficulties engaging in conversation at present with an irritable affect. No evidence or any thoughts of harming himself or anyone else directly. Displays disorganized thoughts. Judgment, insight are poor. ASSESSMENT: Schizophrenia. PLAN: Continue current care, observation. VITAL SIGNS: Blood pressure 124/76, pulse 80, temperature 96.8. He will be seeing the assigned psychiatrist tomorrow, further recommendations will be made.
[2019-10-14] MEDS: NICOTINE 21MG/24HR 1 EA TRANSDERMAL TD SCH (08:04)
--- NOTE | 2019-10-14 10:26 | MHIPNPDOC ---
[facility] Progress Note Progress Note The patient was seen on 10/14/19. 49-year-old man seen in follow-up, he still quite psychotic and makes various bizarre statements. He reports that he is "fine". But he still walks from the room bizarrely and generally states that "when were you go." Vital Signs Vital Signs Date Time Temp Pulse Resp B/P (MAP) Pulse Ox O2 Delivery O2 Flow Rate FiO2 10/12/19 16:49 96.8 80 18 124/76 (92) 98 Room Air Current Medications Current Medications Medications (Trade) Dose Ordered Sig/Dylan Route PRN Reason Start Time Stop Time Status Last Admin Dose Admin Acetaminophen (Tylenol Tab) 650 mg Q6HP PRN PO HEADACHE or DISCOMFORT 10/08/19 12:00 Al Hydrox/Mg Hydrox/Simethicone (Mylanta) 30 ml Q4HP PRN PO HEARTBURN/INDIGESTION 10/08/19 12:00 Fluphenazine HCl (Prolixin) 5 mg BID PO 10/08/19 09:00 10/09/19 10:52 DC 10/09/19 08:33 Fluphenazine HCl (Prolixin) 10 mg BID PO 10/09/19 21:00 10/14/19 08:03 Home Med (Med Rec Complete!) ASDIRECTED XX 10/08/19 09:15 10/08/19 09:11 DC Nicotine (Nicoderm Cq 21mg) 1 patch DAILY TD 10/08/19 09:00 10/14/19 08:04 Olanzapine (ZyPREXA ZYDIS) 5 mg Q4HP PRN PO AGITATION 10/08/19 12:00 10/12/19 11:39 Trazodone HCl (Desyrel) 50 mg QHSP PRN PO INSOMNIA 10/08/19 12:00 10/12/19 22:09 Allergies Coded Allergies: haloperidol (Verified Allergy, Severe, BOUNCES OFF OG, 03/03/19) Review of Systems Review of Systems General: Reports: ROS Unobtainable (Doesn't answer) Mental Status Examination General Appearance: unkempt Build: average Demeanor: mistrustful Eye Contact: avoidant Activity: average Behavior: uncooperative Speech: spontaneous Mood: elevated Affect: flat Thought Process: circumstantial Thought Content (Delusions): persecutory, somatic, bizarre Insight: poor Judgment: Poor Psychosis: Psychotic Perceptions Problem List Problems: (1) Schizophrenia Status: Acute Response to Treatment: Improving Problem Text: Continue to offer Prolixin 10 mg BID (2) Cannabis abuse Status: Chronic Problem Specific Plan: Monitor Clinically Medications Unable to Obtain Active Prescriptions or Reported Meds ALEJANDRO CONNER DO Oct 14, 2019 10:26
[2019-10-14] MEDS: OLANZapine ORAL DISINTEGRATING TAB 5MG PO PRN (13:53)
[2019-10-14 17:11] VITALS: BP 138/90
[2019-10-15] MEDS: NICOTINE 21MG/24HR 1 EA TRANSDERMAL TD SCH (08:31)
[2019-10-15] MEDS: traZODone 50 MG TAB PO PRN (21:02)
[2019-10-16] MEDS: NICOTINE 21MG/24HR 1 EA TRANSDERMAL TD SCH ×2 (08:41→09:20)
[2019-10-16] MEDS: traZODone 50 MG TAB PO PRN (20:22)
[2019-10-16] MEDS: ACETAMINOPHEN TAB 650MG DOSE (2X325MG) PO PRN (21:07)
[2019-10-17] MEDS: NICOTINE 21MG/24HR 1 EA TRANSDERMAL TD SCH (09:00)
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
[2019-10-18] MEDS: NICOTINE 21MG/24HR 1 EA TRANSDERMAL TD SCH (09:00)
[2019-10-18] MEDS: OLANZapine ORAL DISINTEGRATING TAB 5MG PO PRN (18:41)
[2019-10-18] MEDS: ACETAMINOPHEN TAB 650MG DOSE (2X325MG) PO PRN (18:41)
[2019-10-18] MEDS: traZODone 50 MG TAB PO PRN (20:37)
[2019-10-19] MEDS: NICOTINE 21MG/24HR 1 EA TRANSDERMAL TD SCH ×2 (08:58→09:13)
[2019-10-19] MEDS: traZODone 50 MG TAB PO PRN (20:05)
[2019-10-19] MEDS: OLANZapine ORAL DISINTEGRATING TAB 5MG PO PRN (20:05)
[2019-10-20] MEDS: NICOTINE 21MG/24HR 1 EA TRANSDERMAL TD SCH (08:09)
--- NOTE | 2019-10-20 10:03 | MHIPNPDOC ---
[facility] Progress Note Progress Note DOS: 10/19/2021 Patient met with today with nurse present for telehealth evaluation due to COVID Crisis Events Overnight:[none] Group Attendance:: none Symptom changes (psych ROS): Affective: denies Psychotic: still growling, highly psychotic today Anxiety:. Denies Staff Report: still bizarre with only intermittent moments of clarity Medical ROS: Unable to determine due to mental status MSE: Vitals: Below General: poor Speech: rapid Thought processes: tangential Thought content: psychotic delusions Abstract reasoning, and computation: impaired Description of associations: imparied Description of abnormal or psychotic thoughts:Unclear, appears to have psychotic processes going on. Judgment: poor Insight: poor Orientation: Alert and orientated 3 Recent and remote memory: Intact Attention span and concentration: impaired secondary to thought process Fund of knowledge: unable to determine Mood: "it's the voices not me" Affect: flat, little reactivity Vital Signs Vital Signs Date Time Temp Pulse Resp B/P (MAP) Pulse Ox O2 Delivery O2 Flow Rate FiO2 10/14/19 17:11 97.1 97 18 138/90 (106) Current Medications Current Medications Medications (Trade) Dose Ordered Sig/Dylan Route PRN Reason Start Time Stop Time Status Last Admin Dose Admin Acetaminophen (Tylenol Tab) 650 mg Q6HP PRN PO HEADACHE or DISCOMFORT 10/08/19 12:00 10/18/19 18:41 Al Hydrox/Mg Hydrox/Simethicone (Mylanta) 30 ml Q4HP PRN PO HEARTBURN/INDIGESTION 10/08/19 12:00 Fluphenazine HCl (Prolixin) 5 mg BID PO 10/08/19 09:00 10/09/19 10:52 DC 10/09/19 08:33 Fluphenazine HCl (Prolixin) 10 mg BID PO 10/09/19 21:00 10/20/19 08:08 Home Med (Med Rec Complete!) ASDIRECTED XX 10/08/19 09:15 10/08/19 09:11 DC Nicotine (Nicoderm Cq 21mg) 1 patch DAILY TD 10/08/19 09:00 10/20/19 08:09 Olanzapine (ZyPREXA ZYDIS) 5 mg Q4HP PRN PO AGITATION 10/08/19 12:00 10/19/19 20:05 Trazodone HCl (Desyrel) 50 mg QHSP PRN PO INSOMNIA 10/08/19 12:00 10/19/19 20:05 Allergies Coded Allergies: haloperidol (Verified Allergy, Severe, BOUNCES OFF OG, 03/03/19) Problems (1) Schizophrenia Status: Acute Response to Treatment: Worse Problem Text: Continue Prolixin (2) Cannabis abuse Status: Chronic Problem Specific Plan: Monitor Clinically Plan / VTE VTE Prophylaxis Ordered?: No Plan Diet: Continue Current Activity: Continue Current Anticipated Discharge: Psych (Long-term referral, conversion to 2 PC) ALEJANDRO CONNER DO Oct 20, 2019 10:03
[2019-10-20] MEDS: OLANZapine ORAL DISINTEGRATING TAB 5MG PO PRN (12:32)
[2019-10-21] MEDS: NICOTINE 21MG/24HR 1 EA TRANSDERMAL TD SCH (08:10)
[2019-10-21] MEDS: ACETAMINOPHEN TAB 650MG DOSE (2X325MG) PO PRN (13:43)
[2019-10-21 16:05] VITALS: BP 130/73
[2019-10-22] MEDS: NICOTINE 21MG/24HR 1 EA TRANSDERMAL TD SCH (07:58)
[2019-10-22] MEDS: ACETAMINOPHEN TAB 650MG DOSE (2X325MG) PO PRN ×2 (09:35→17:25)
[2019-10-22] MEDS: OLANZapine ORAL DISINTEGRATING TAB 5MG PO PRN ×2 (12:56→17:10)
[2019-10-22 16:07] VITALS: BP 132/79
[2019-10-23 06:29] VITALS: BP 131/83
[2019-10-23] MEDS: NICOTINE 21MG/24HR 1 EA TRANSDERMAL TD SCH (08:12)
[2019-10-23 17:48] VITALS: BP 136/88
[2019-10-23] MEDS: OLANZapine ORAL DISINTEGRATING TAB 5MG PO PRN (18:03)
[2019-10-23] MEDS: ACETAMINOPHEN TAB 650MG DOSE (2X325MG) PO PRN (18:04)
--- NOTE | 2019-10-23 18:35 | MHIPN ---
DATE: 10/23/2019 Vital Signs: Blood pressure 131/83, pulse 87, temperature 97.2. This is a video assessment, telemedicine, we are doing this because of the virus pandemic. He is aware of this. CHIEF COMPLAINT: Says doing okay. SUBJECTIVE: He is seen for followup in the presence of staff. Says he is feeling okay, slept well, has been eating okay, and he had taken a nap today, did not hear called out at that time. MENTAL STATUS EXAM: He is neat, he is cooperative. Currently no agitation. No psychomotor retardation. Answers questions briefly, coherently. Affect is restricted but reactive. He does not appear internally preoccupied at present. Denies any auditory or visual hallucinations. His cognition is grossly intact. Judgment and insight remain compromised, but improved. ASSESSMENT: Schizophrenia. PLAN: Continue current care and observation. He is being planned for long-term care. He was encouraged to participate in activities on the unit.
[2019-10-23] MEDS: traZODone 50 MG TAB PO PRN (22:25)
[2019-10-24 06:52] VITALS: BP 140/86
[2019-10-24] MEDS: NICOTINE 21MG/24HR 1 EA TRANSDERMAL TD SCH (08:55)
[2019-10-24] MEDS ORDERED: fluPHENAZine DECAN 25MG/ML 5ML VIAL (J2680) IM ONE (11:00)
[2019-10-24 17:18] VITALS: BP 126/79
--- NOTE | 2019-10-24 17:27 | MHIPN ---
DATE: 10/24/2019 This is a video assessment, inpatient unit. We are doing this because of the virus pandemic. Patient is aware of it and agrees to it. He is accompanied by staff. CHIEF COMPLAINT: Says feels good. SUBJECTIVE: Seen for followup. Indicates continues to feel good and that he had a good night last night. He says had a nap this morning. Did not hear his name called when he was about to go to sleep, in contrast to previous occasions. Appetite has been good. Says is in contact with friends. Generally mood has been good. Has been interacting well with others. MENTAL STATUS EXAMINATION: He is neat. He is cooperative. No psychomotor retardation. No agitation at present. He is coherent. Affect fairly broad. Does not appear internally preoccupied. No auditory or visual hallucinations at present. Cognition is grossly intact. No delusional ideations elicited. Judgment and insight remain compromised, but they are improved overall. ASSESSMENT: Schizophrenia. He continues to do well, particularly recent days. PLAN: Continue current care and observation. Says he has been told that should improvement continue, may be discharged in the near future. He says he would rather that were to happen than going to [place].
[2019-10-25] MEDS: ACETAMINOPHEN TAB 650MG DOSE (2X325MG) PO PRN ×2 (04:17→20:59)
[2019-10-25 06:24] VITALS: BP 134/83
[2019-10-25] MEDS: NICOTINE 21MG/24HR 1 EA TRANSDERMAL TD SCH (08:50)
[2019-10-25 10:00] VITALS: BP 134/83
[2019-10-25 16:24] VITALS: BP 118/73
[2019-10-26 06:39] VITALS: BP 145/81
[2019-10-26] MEDS: NICOTINE 21MG/24HR 1 EA TRANSDERMAL TD SCH (08:45)
--- NOTE | 2019-10-26 14:43 | MHIPN ---
DATE: 10/22/2019 I am assigned to this case today. This is being done on the video because of the virus pandemic. CHIEF COMPLAINT: Says he is doing okay. SUBJECTIVE: Seen for followup, in the presence of staff. He says he is doing okay, though somewhat vague on this. He has felt somewhat bored; says there is not much to do. Indicates tries a nap during the day, that when he does, he hears somebody calling his name several times and says then he at times is unable to sleep. Says it only happens when he is trying to take a nap in the afternoon or in the daytime, but not at night. He says has been eating okay. Also suggests has been in touch with people outside the hospital. MENTAL STATUS EXAMINATION: Neat. He is currently cooperative. No agitation. Answers questions briefly, logically. Affect is fair range. Denies thoughts of harming himself or anyone else at present. At present, does not appear to be internally occupied. No overt delusions, but these are possibly just under the surface; none elicited at present. Cognition grossly intact. Judgment and insight, though possibly improved, remain quite impaired. ASSESSMENT: Schizophrenia. PLAN: Continue current care; has been referred for long-term care. At this point, that ought to be continued to be pursued. Meanwhile, continue Prolixin; the current dose is 15 mg twice a day. He is clinically improved from the last time I saw him, a couple of days ago, and even more so from about 10 days ago. Staff informed me that he had a verbal outburst this morning, however. Further recommendations will be made depending on the clinical picture. VITAL SIGNS: Blood pressure 132/79, pulse 88, temperature 98.
[2019-10-26 16:26] VITALS: BP 128/79
[2019-10-26] MEDS: OLANZapine ORAL DISINTEGRATING TAB 5MG PO PRN (21:52)
[2019-10-26] MEDS: traZODone 50 MG TAB PO PRN (22:43)
[2019-10-27 06:37] VITALS: BP 134/88
[2019-10-27] MEDS: NICOTINE 21MG/24HR 1 EA TRANSDERMAL TD SCH (07:43)
--- NOTE | 2019-10-27 10:31 | MHDSPDOC ---
[facility] Discharge Summary Discharge Summary DATE OF ADMISSION: October 08, 2019 at 11:48 DATE OF DISCHARGE: Oct 27, 2019 at 14:05 DISCHARGE DIAGNOSES: See Problem list below REASON FOR ADMISSION: 49-year-old man present psychotic after stopping medications for schizophrenia CONSULTANTS INVOLVED:[ None (basic hospitalist screening)] TREATMENT AND PROGRESS ON THE UNIT : Medication changes: started on Prolixin increase to 10 mg BID, patient eventually agreed to long-acting injectable, patient made good progress slowly resulting in becoming more able to control behaviorists Behavior on unit: Grell that people occasionally both never violent, bizarreness and unusual thinking resolved in patient became much more amenable, with better insight Treatment attendance: infrequent at times Notable issues on presentation: none State on discharge: [improved] DISCHARGE ASSESSMENT: The patient a 49 year old man, with likely chronic schizophrenia, presented to [facility], where they treated with previously effective agents and placed on long-acting injectable due to history of noncompliance with positive results, resolving significantly. Legal status considerations: The patient at the time of discharge did not meet criteria for involuntary admission/extension due to having a greatly improved mental status exam, improved insight into the situation, They are engaged in the discharge process, as well as being friendly and amenable in behavioral control and havent been engaging in any observed concerning behavior or ideation recently. They decline voluntary extension/admission at this time and must be discharged in [place], as Im unable to make a case for holding the patient against their will. They may have historical risk factors of admissions and other interactions with psychiatry however, those are not modifiable from a clinical perspective. The patient will need to be discharged in good [place]. MENTAL STATUS EXAMINATION ON DISCHARGE: General: [Well dressed with good hygiene] Speech: [Spontaneous and fluid] Thought processes: linear Thought content: [Future orientated] Abstract reasoning, and computation: [Intact] Description of associations: improved, only some unusual thoughts at times but no violent thoughts able to question Description of abnormal or psychotic thoughts: denies any SI or HI, denies auditory or visual hallucinations. Judgment: greatly improved Insight: greatly improved Orientation: [Alert and orientated 3] Recent and remote memory: [Intact] Attention span and concentration: [Intact] Fund of knowledge: [Adequate] Mood: ["okay"] Affect: [Euthymic with a full range] PLAN/FOLLOWUP ARRANGEMENTS: Follow up appointments made (PCP and MH in 5 days of D/C date) and safety plan completed. Safety Planning aspects completed prior to discharge [SAFE ACT reported on initial invol admission in ER] Injectable medication in order to ensure compliance and prevent relapse [Family contact completed, educated on safe practices, instructed on removal and mitigation of dangerous means] [RN reviewed crisis hotline information and other aspects to empower patient to access care in interim before next appointment.] The amount of time spent in the coordination of care for this patient was approximately 30 minutes. Vital Signs/I&Os Vital Signs Date Time Temp Pulse Resp B/P (MAP) Pulse Ox O2 Delivery O2 Flow Rate FiO2 10/27/19 06:37 98.8 103 18 134/88 (103) 10/26/19 07:39 Room Air 10/25/19 10:00 Medications Scheduled Fluphenazine Decanoate (Fluphenazine Decanoate) 25 Mg/1 Ml Vial, 1 ML IM q4week for thoughts for 30 Days, #4 Fluphenazine HCl (Fluphenazine HCl) 5 Mg Tablet, 10 MG PO BID for thoughts for 7 Days, #28 Nicotine (Nicotine Patch) 21 Mg Patch.td24, 1 PATCH TD DAILY for tobacco for 30 Days, #30 Olanzapine (Olanzapine) 5 Mg Tablet, 1 TAB PO QPM for thought for 7 Days, #15 Scheduled PRN Trazodone HCl (Trazodone HCl) 50 Mg Tablet, 50 MG PO QHSP PRN for INSOMNIA for 7 Days, #7 Allergies Coded Allergies: haloperidol (Verified Allergy, Severe, BOUNCES OFF OG, 03/03/19) Problems (1) Schizophrenia Status: Chronic Response to Treatment: Stable (2) Cannabis abuse Status: Chronic Plan / VTE VTE Prophylaxis Ordered?: ALEJANDRO Villanueva DO Oct 27, 2019 10:31
[2019-10-27] MEDS ORDERED: OLAN5TAB PO (10:35)
[2019-10-27] MEDS ORDERED: NICO21PAT TD (10:35)
[2019-10-27] MEDS ORDERED: TRAZ-252 PO (10:35)
[2019-10-27] MEDS ORDERED: FLUP5TA PO (10:35)
[2019-10-27] MEDS ORDERED: FLUP25VL IM (10:37)
== END 2019-10-27 14:05 | disposition home or self-care (01) | DRG 885 ==
LOC: M ED 05:22 → M ED INP 11:48 → M PSY 13:45
PROVIDERS: ADMIT Psychiatry & Neurology Addiction Medicine; ATTEND Psychiatry & Neurology Addiction Medicine
DX: F20.5 Residual schizophrenia (principal); F12.90 Cannabis use, unspecified, uncomplicated; Z88.8 Allergy status to other drugs, medicaments and biological substances; Z79.899 Other long term (current) drug therapy

== ENCOUNTER 2021-01-10 16:06 | Inpatient (IN) | payer MEDICAID, MEDICARE ==
[~2021-01-10 16:06] MED LIST changes: -FLUP5TA PO; +FLUP5TAB13 PO; +GABA-283; -GABA-845; +OLAN1TAB16 PO
[2021-01-10] MEDS ORDERED: diphenhydrAMINE 50MG/ML VIAL (J1200) IM ONE (16:20)
[2021-01-10] MEDS ORDERED: LORazepam 2 MG/ML VIAL IM ONE (16:20)
[2021-01-10] MEDS ORDERED: OLANZapine 5 MG TAB PO ONE (16:25)
[2021-01-10] MEDS ORDERED: OLANZapine ORAL DISINTEGRATING TAB 5MG PO ONE (16:25)
[2021-01-10 16:58] LABS: HEMATOCRIT 44.7 % (42.0-52.0); HEMOGLOBIN 15.6 g/dl (13.5-17.5); MEAN CORPUSCULAR HEMOGLOBIN 30.5 pg (27.0-33.0); MEAN CORPUSCULAR HGB CONC 34.9 g/dl (32.0-36.5); MEAN CORPUSCULAR VOLUME 87.5 fl (80.0-96.0); PLATELET COUNT, AUTOMATED 274 10^3/uL (150-450); RED BLOOD COUNT 5.11 10^6/uL (4.30-6.10); WHITE BLOOD COUNT 13.9 10^3/uL (4.0-10.0)
[2021-01-10 17:20] LABS: AMPHETAMINES LEVEL URINE NEGATIVE (NEGATIVE); BARBITURATES URINE NEGATIVE (NEGATIVE); BENZODIAZEPINES URINE NEGATIVE (NEGATIVE); CANNABINOIDS URINE POSITIVE (NEGATIVE); COCAINE METABOLITE URINE NEGATIVE (NEGATIVE); METHADONE URINE NEGATIVE (NEGATIVE); OPIATES URINE NEGATIVE (NEGATIVE); PHENCYCLIDINE URINE NEGATIVE (NEGATIVE)
[2021-01-10 17:47] LABS: ACETAMINOPHEN LEVEL < 2.0 UG/ML (10.0-30.0); ALT/SGPT 33 U/L (12-78); BILIRUBIN,DIRECT 0.2 MG/DL (0.0-0.2); BILIRUBIN,TOTAL 1.1 MG/DL (0.2-1.0); BLOOD UREA NITROGEN 12 MG/DL (7-18); CALCIUM LEVEL 9.4 MG/DL (8.5-10.1); CARBON DIOXIDE LEVEL 26 MEQ/L (21-32); CHLORIDE LEVEL 105 MEQ/L (98-107); CREATININE FOR GFR 0.94 MG/DL (0.70-1.30); ETHYL ALCOHOL (ETHANOL) 0.003 % (0.000-0.010); GLOMERULAR FILTRATION RATE > 60.0 (>56); GLUCOSE, FASTING 143 MG/DL (70-100); SALICYLATE LEVEL 2.4 MG/DL (5.0-30.0); SODIUM LEVEL 139 MEQ/L (136-145); THYROID STIMULATING HORMONE 0.563 uIU/ML (0.358-3.740); TOTAL PROTEIN 7.6 GM/DL (6.4-8.2)
--- NOTE | 2021-01-10 21:11 | MHIPNPDOC ---
[facility] Progress Note Progress Note DATE OF SERVICE: 01/10/21 Communicated to [facility] patient meets criteria for inpatient admission after presentation. Patient called EMS due to leg pain, was transferred to [facility] in ED and chemically restrained after noted agitation in context of psychotic symptoms including bizarre delusions of having aliens in his body. [facility], has a lengthy history of schizophrenia. Vital Signs Vital Signs Date Time Temp Pulse Resp B/P (MAP) Pulse Ox O2 Delivery O2 Flow Rate FiO2 01/10/21 20:09 99.5 95 18 107/58 (74) 95 01/10/21 17:57 Room Air Laboratory Data 24H Labs Laboratory Tests 2 01/10/21 16:10: Nucleated Red Blood Cells % (auto) 0.0, Anion Gap 8, Glomerular Filtration Rate > 60.0, Calcium Level 9.4, Total Bilirubin 1.1H, Direct Bilirubin 0.2, Aspartate Amino Transf (AST/SGOT) 27, Alanine Aminotransferase (ALT/SGPT) 33, Alkaline Phosphatase 58, Total Protein 7.6, Albumin 4.0, Albumin/Globulin Ratio 1.1, Thyroid Stimulating Hormone (TSH) 0.563, Salicylates Level 2.4L, Urine Opiates Screen NEGATIVE, Urine Methadone Screen NEGATIVE, Acetaminophen Level < 2.0L, Urine Barbiturates Screen NEGATIVE, Urine Phencyclidine Screen NEGATIVE, Urine Amphetamines Screen NEGATIVE, Urine Benzodiazepines Screen NEGATIVE, Urine Cocaine Metabolite Screen NEGATIVE, Urine Cannabinoids Screen POSITIVEH, Ethyl Alcohol Level 0.003 CBC/BMP Laboratory Tests 01/10/21 16:10 Current Medications Current Medications Medications (Trade) Dose Ordered Sig/Dylan Route PRN Reason Start Time Stop Time Status Last Admin Dose Admin Trimethoprim/ Sulfamethoxazole (Bactrim Ds, Septra Ds 160mg/ 800mg) 1 tab BID PO 01/10/21 21:00 01/18/21 21:00 Allergies Coded Allergies: haloperidol (Verified Allergy, Severe, BOUNCES OFF OG, 03/03/19) MEHNAZ JUAN MD Jan 10, 2021 21:11
[2021-01-10] MEDS: BACTRIM 160MG/800MG DS TAB PO SCH (21:18)
[2021-01-11] MEDS: BACTRIM 160MG/800MG DS TAB PO SCH ×2 (09:16→20:51)
[2021-01-11] MEDS ORDERED: HOME MED LIST COMPLETE! XX SCH (09:30)
[2021-01-11] MEDS ORDERED: MED REC COMMENT (09:30)
[2021-01-11] MEDS ORDERED: OLAN20TA14 PO (09:30)
[2021-01-11 10:32] LABS: RSV AMPLIFICATION NEGATIVE (NEGATIVE)
[2021-01-11] MEDS ORDERED: MAALOX 30 ML SUSP *UDC PO PRN (13:20)
[2021-01-11] MEDS ORDERED: LORazepam 1 MG TAB PO PRN (13:20)
[2021-01-11] MEDS ORDERED: diphenhydrAMINE 25MG CAP PO PRN (13:20)
[2021-01-11] MEDS ORDERED: MOM 30ML SUSPENSION UDC PO PRN (13:20)
[2021-01-11] MEDS ORDERED: haloperidoL 5 MG TAB PO PRN (13:20)
--- NOTE | 2021-01-11 15:51 | ECGEPIP ---
[facility] - ED Test Date: 2021-01-11 Pat Name: CODIE CABRALES Department: Room: - Gender: Male Risk Management Specialist: RICHIE : 1970 Requested By: AMBER Adams Order Number: [id number] Reading MD: Leatha Mir Measurements Intervals Winters Rate: 86 P: 42 MS: 194 QRS: -3 QRSD: 100 T: 51 QT: 360 QTc: 430 Interpretive Statements Normal sinus rhythm similar 03/03/19 Electronically Signed on 01-11-2021 15:50:56 EDT by Leatha Mir
--- NOTE | 2021-01-11 19:03 | HPEPDOC ---
[facility] Medical History & Physical Date of Admission Jan 10, 2021 Date of Service: Jan 11, 2021 Other Provider Frankie Pak DO, hospitalist Attending Physician: MEHNAZ JUAN MD History and Physical CHIEF COMPLAINT: Psychosis HISTORY OF PRESENT ILLNESS: Patient is a 50-year-old male who is currently admitted to the inpatient mental health unit for psychotic symptoms including bizarre delusions of having aliens in his body. In speaking with the patient, he does not know why he was admitted to the hospital. Patient states that he was walking down the street and called the ambulance because his feet were hurting him and was brought into the inpatient mental health unit. Patient is complaining of some pain in his feet. Patient says he was walking" $[address]" causing him to have blisters on the bottom of his feet. Patient is also very concerned and was very upset with staff over some redness on his lower legs. Patient was given a dose of Bactrim in the emergency department. Patient is otherwise feeling well and does not have any other complaints at this time. PAST MEDICAL HISTORY: 1. Schizophrenia. 2. History of psychosis. 3. Anxiety. 4. Depression 5. History of back spasms PAST SURGICAL HISTORY: Patient denies any surgeries in the past SOCIAL HISTORY: Patient is a current smoker denies alcohol and denies illicit drug use although his urine tox screen was positive for marijuana. FAMILY HISTORY: Per the medical record, father medical history is unknown, mother had cancer ALLERGIES: Please see below. REVIEW OF SYSTEMS: General: Patient denies fevers HEENT: Patient denies headaches Cardiovascular: Patient denies chest pain Respiratory: Patient denies shortness of breath, cough GI: Patient denies abdominal pain, nausea, vomiting, diarrhea : Patient denies increased frequency or pain with urination Extremities: Patient denies swelling or pain in extremities Neurological: Patient denies numbness or tingling in legs Skin: Patient reports blisters on the bottom of his feet and redness on his lower extremities bilaterally Hematologic: Patient denies any easy bruising. Lymphatic: Patient denies any lumps lumps or bumps in neck, axilla, or groin HOME MEDICATIONS: Please see below. PHYSICAL EXAMINATION: VITAL SIGNS: Temperature 97.4, pulse 89, respiratory rate 18, blood pressure 147/74, pulse oximetry 100% on room air. General: Alert and oriented male patient who was lying in bed when I walked in the room. Patient was initially reluctant to sit up but did end up sitting up. Patient not appear to be in acute distress. HEENT: Normocephalic, atraumatic, moist mucous membranes. Neck: No lymphadenopathy or thyromegaly Cardiac: Regular rate and rhythm, no murmurs, normal S1, normal S2 Pulm: Clear to auscultation bilaterally. No wheezes, rhonchi, rales Abd: Nondistended, nontender to palpation, normal bowel sounds Ext: Redness on the bilateral lower extremities left worse than right. There was some heat coming from the area of redness. No purulent drainage. Multiple large bulla on the plantar surface of the feet bilaterally Neuro: Patient reports equal sensation to light touch and upper lower extremities bilaterally. LABORATORY DATA: See below. IMAGING: No imaging has been performed MICROBIOLOGY: Please see below. ASSESSMENT: 50-year-old male who is hospitalized in the inpatient mental health unit for psychosis who presents with possible cellulitis and blisters on his feet. . PLAN: 1. Psychosis. Treatment per psychiatry. 2. Cellulitis. Patient will be treated with Bactrim for 5 days and will continue to monitor. 3. Blisters on bottom of feet. Patient has blisters on the bottom of her feet. I advised the patient to try to stay off his feet as much as possible and to apply an emollient to the bottom of his feet especially at night to help heal. 4. DVT prophylaxis: Not indicated 5. CODE STATUS: Full code Disposition: Discharge and treatment plan per psychiatry. Please reconsult hospitalist if the need arises. Thank you for this consultation. Vital Signs Vital Signs Date Time Temp Pulse Resp B/P (MAP) Pulse Ox O2 Delivery O2 Flow Rate FiO2 01/11/21 13:39 97.4 89 18 147/74 (98) 100 Room Air Laboratory Data Labs 24H Laboratory Tests 2 01/11/21 09:33: Coronavirus (COVID-19)(PCR) NEGATIVE, Influenza Type A (RT-PCR) NEGATIVE, Influenza Type B (RT-PCR) NEGATIVE, Respiratory Syncytial Virus (PCR) NEGATIVE Microbiology Microbiology 01/10/21 Blood Culture - Preliminary, Resulted No growth after 24 hours . All specim... Home Medications Scheduled Olanzapine (Olanzapine) 20 Mg Tablet, 10 MG PO BID Miscellaneous Medications [Med Rec Comment] MED LIST OBTAINED FROM [facility] Allergies Coded Allergies: haloperidol (Verified Allergy, Severe, BOUNCES OFF OG, 03/03/19) A-FIB/CHADSVASC A-FIB History Current/History of A-Fib/PAF?: No FRANKIE PAK DO Jan 11, 2021 19:03
[2021-01-11] MEDS: OLANZapine 10 MG TAB PO SCH (20:51)
[2021-01-11] MEDS: DIMETHICONE 2% OINTMENT(VANICREAM) 70GM TUBE TOP SCH (20:52)
[2021-01-12] MEDS: BACTRIM 160MG/800MG DS TAB PO SCH ×2 (09:26→21:02)
[2021-01-12] MEDS: OLANZapine 10 MG TAB PO SCH (09:26)
[2021-01-12] MEDS: fluPHENAZine 5MG TABLET PO SCH ×2 (11:24→21:02)
--- NOTE | 2021-01-12 15:42 | MHHPEPDOC ---
General Date Of Admission: Jan 11, 2021 Legal Status: 9.39 Chief Complaint "I'm not going back, they were jealous to trade bliss for insanity for control" History of Present Illness HISTORY OF THE PRESENT ILLNESS: Patient is a 50 -year-old , male, extensive and lengthy history of schizophrenia, delusional disorder and noncompliance who presents to the [facility] after calling EMS, in a disorganized and psychotic state. Initially on admission per PSA reported having aliens in his body. Today on interview he is disheveled and disorganized. He talks about bizarre delusions including bad people coming to get him out of his apartment because they use a digital form of manipulating him in his mind, controlling his mind. Makes nonsensical statements and clang associations. During our interview he is concerned that I am controlling his mind and states that "I am not the fish they digitally intervened with insanity perceived upon call". When asked about starting him on his home medications he states " the thought is and the pumped it into me". "They are jealous to trade [place] for insanity for control". Patient appears to be internally preoccupied, states he will not go back to his home which she reports is an apartment in [place], [place] because "it is a nightmare with crooked people there a lot of bad stuff going on". When asked to elaborate is unable to provide any meaningful information. Does not answer questions about suicidal or homicidal ideation, but does not appear to be overtly agitated or threatening, per nursing staff has not been aggressive on previous admissions. Psychiatric Review of Systems Depression (2 or more weeks): difficulty concentrating Shelly (4 or more days of): expansive mood, distractibility Psychosis: auditory hallucination, visual hallucination, delusions, paranoia, disorganization Anxiety/ 6 months or more of: sleep disturbance Past Psychiatric History Previous Psychiatric Diagnosis: Long history of schizophrenia, delusional disorder Previous Psychiatric Admissions: Multiple more than 10, last admission was October 08, 2019 for 2 weeks in context of stopping medications. Suicide Attempts: No clear suicide attempts per chart review Psychiatric Follow-up: Likely does not have currently, will need to review with treatment team and social work to assess further Psychiatric medications: Per chart review was last discharged with Prolixin 10 mg twice daily, 25 mg Prolixin SAAVEDRA monthly, olanzapine 5 mg nightly Past Medical History Medical Problems Denies Head Injury: No Seizures: No Hospitalizations: No Surgeries: No Family Medical/Psychiatric HX Medical Problems Denies Psychiatric Disorders: No Addiction: No Suicide Attemps/Completions: No Addiction History nicotine (Per chart review has a history of smoking 1 to 2 packs/day), alcohol (Per chart review has a remote history of alcohol use), other (Cannabis per toxicology screen unknown amount, unclear about other drug use or alcohol use or nicotine use) Social History Childhood: Neglect as a child, mother had borderline personality disorder. Per chart review parents are age 14 and he went to live with mom and stepdad. Per chart review is 1 older stepbrother. Abuse/Trauma: Neglect, per chart review history of bullying. Current Living Situation: Apartment in [facility], needs confirmation. Education: . Employment: Unemployed, per chart review is SSDI Social Support: Limited supports, possibly none Legal: Per chart review has been picked up multiple times by police, unknown currently Marital: Chart review was after his first psychotic break, lives in [place], they had 2 children and 1 stepchild. Mental Status Examination General Appearance: unkempt, disheveled, hospital scubs/clothing Build: thin Demeanor: hostile, mistrustful, withdrawn, preoccupied, guarded Eye Contact: intense Activity: average, anxious Behavior: withdrawn Speech: clear, normal volume, non-spontaneous, impoverished, other (Disorganized) Mood: anxious, other (Paranoid) Affect: labile, anxious, disorganized Thought Process: incoherent, loose, derailment Thought Content (Delusions): persecutory, nihilistic, paranoia, delusions (Persecutory delusions) Thought Content (Other): preoccupied, guarded, phobic, internal-stimuli, appears paranoid, unable to elaborate Thought Content (Aggressive): none reported Perception (Hallucinations): auditory, visual Perception (Other): illusions Cognition (Impairment of): none reported Cognition(Intelligence Est.): borderline Oriented: Awake, Alert, Oriented times three Insight: poor Judgment: Poor Psychosis: Associations, Abstract Thinking, Psychotic Perceptions Diagnoses Schizophrenia, paranoid type per history Cannabis use disorder A-FIB/CHADSVASC A-FIB History Current/History of A-Fib/PAF?: No Current PO Anticoag Therapy: No Age/Risk Factor Scoring CHADSVASC: CHADSVASC Response (Comments) Value Age Risk Factor Age < 65 years old 0 Gender Risk Factor Male 0 Hx of CHF No 0 Hx of HTN No 0 Hx of Stroke/TIA/or VTE No 0 Hx of Diabetes No 0 Hx of Vascular Disease No 0 Total 0 Treatment Treatment ordered: NONE Reason Anticoagulant not given: Not indicated/[id number] (Defer to hospitalist team) Assessment Patient is a 50 -year-old , male, extensive and lengthy history of schizophrenia, delusional disorder and noncompliance who presents to the [facility] after calling EMS, in a disorganized and psychotic state. Initially on admission per PSA reported having aliens in his body. EKG was 430 ms, normal sinus rhythm on January 11, 2021. Toxicology screen is positive for cannabis. White blood cell count is elevated, concern for cellulitis and treated with TMP- SMX for 5 days , also has emollient for feet blisters per hospitalist consult. TSH is within normal limits. He is disorganized, bizarre delusional, internally preoccupied and speaking incoherently on interview. Reports continues to live in [place], [place] in an apartment. Likely noncompliant with outpatient treatment. Unclear when he had his last injection of Prolixin 25 mg, ordered a Prolixin level to see if he has been taking medication. He was previously discharged on Prolixin 10 mg twice daily and 25 mg q. monthly SAAVEDRA, and olanzapine 5 mg nightly. Ordered 5 mg of Prolixin twice daily to restart on medications (plan to titrate up to 10 mg twice daily), also ordered olanzapine 5 mg nightly, if he takes medication and continues to tolerate plan is to give him an injection of Prolixin 25 mg Qmonthly to move patient towards stabilization and reduction of psychotic sy mptoms, as he has tolerated this combination of treatment in the past. We will also need to more thoroughly evaluate for suicidal homicidal ideation with the assistance of treatment team staff including nursing. We will need fasting labs prior to discharge to assess metabolic profile in context of antipsychotic medications. Initial Treatment Plan 1. Patient was admitted on a [9.39] status. 2. Complete history was obtained. 3. With patients permission, family will be contacted and database will be expanded. 4. Patients medication regimen will be reviewed and changed accordingly. 5. Patient will be provided with protected environment. 6. Patient will be treated with individual, group, and milieu therapies. 7. Patient will receive supportive psych-education. 8. Discharge planning will commence immediately. 9. Outpatient follow-up treatment will be strongly recommended. 10. The initial treatment plan will focus initially on: * Psychosis * Risk for suicide. ESTIMATED LENGTH OF STAY: 5-15 DAYS. TIME SPENT COUNSELING AND COORDINATING INITIAL CARE: 40 minutes. Tobacco Cessation Screen If Patient is a Smoker Unknown Tobacco Cessation Tx Ordered?: Yes Complete/Results docum. Vital Signs Vital Signs Date Time Temp Pulse Resp B/P (MAP) Pulse Ox O2 Delivery O2 Flow Rate FiO2 01/11/21 13:39 97.4 89 18 147/74 (98) 100 Room Air Laboratory Data 24H Labs Laboratory Tests 2 01/12/21 11:20: Medications Scheduled Olanzapine (Olanzapine) 20 Mg Tablet, 10 MG PO BID, (Reported) Miscellaneous Medications [Med Rec Comment] , (Reported) MED LIST OBTAINED FROM [facility] Allergies Coded Allergies: haloperidol (Verified Allergy, Severe, BOUNCES OFF OG, 03/03/19) MEHNAZ JUAN MD Jan 12, 2021 15:42
[2021-01-12 16:12] VITALS: BP 138/63
[2021-01-12] MEDS: DIMETHICONE 2% OINTMENT(VANICREAM) 70GM TUBE TOP SCH (21:02)
[2021-01-12] MEDS: OLANZapine 5 MG TAB PO SCH (21:02)
[2021-01-13 06:38] VITALS: BP 120/77
[2021-01-13] MEDS: BACTRIM 160MG/800MG DS TAB PO SCH ×2 (08:35→20:01)
[2021-01-13] MEDS: fluPHENAZine 5MG TABLET PO SCH ×2 (08:35→20:01)
--- NOTE | 2021-01-13 13:21 | MHIPNPDOC ---
[facility] Progress Note Progress Note DATE OF SERVICE: 01/13/21 HISTORY: Patient is a 50 -year-old , male, extensive and lengthy history of schizophrenia, delusional disorder and noncompliance, reportedly living in his own apartment alone in [facility], no longer in [facility], who presents to the [facility] after calling EMS, in a disorganized and psychotic state. Initially on admission per PSA reported having aliens in his body. Interval: Has been taking his medications including antipsychotics, Prolixin 5 mg twice daily, has had 3 doses, is seen more often in the hallways. Spoke with social work who reported initially he seemed calm and organized and as the conversation continued, patient endorsed blisters on feet might be related to cellulitis then went on to talk about how the infection was likely caused by aliens, with further disorganized derailment. Saw patient in the hallway as he did not want to return to room was smiling and talking to himself near the nursing station, will try to continue to engage. Endorses paranoia regarding others having it out for him, as conversation continues has disorganized thought process. VITAL SIGNS: See below. NEW TEST RESULTS: Previously reviewed, TSH within normal limits at 0.563, fasting glucose 143 on January 10, elevated white blood cell count, on antibiotics and followed by hospitalist team. CURRENT MEDICATIONS: See below. MENTAL STATUS EXAMINATION: Patient is a 50-year old male, who is in no acute distress, wearing hospital clothing, standing in the hallway, smiling to himself, short tsai hair, poor hygiene, thin, appears older than stated age. Speech: Is disorganized. Language skills are poor. Thought processes including: Disorganized. Thought content: Perseverates on bizarre conspiracies involving aliens. Abstract reasoning, and computation: Poor, unable to fully assess. Description of associations: Poor. Description of abnormal or psychotic thoughts: Bizarre delusions of aliens infiltrating body and causing medical conditions, persecutory delusions of others out to get him. Judgment: Poor. Insight: Poor. Orientation: Unable to fully assess, not cooperative with questioning gets derailed and goes into psychotic symptoms. Recent and remote memory: Poor Attention span and concentration: Fair. Language: Eritrean. Fund of knowledge: Unable to fully in acute of psychotic Mood: "Whatever" Affect: Disorganized, psychotic internally preoccupied, smiling to himself inappropriately DIAGNOSES: 1. Schizophrenia, paranoid type per history 2. Cannabis use disorder 3. Cellulitis, treated and followed by hospitalist team with Bactrim, 5-day course, on day 4 ASSESSMENT: Continues to be grossly psychotic, however is taking medications and is been compliant with lab testing, Prolixin level is still pending, ordered fasting lipid panel and A1c for tomorrow a.m., fasting glucose was 143 01/10. Patient continues to be disorganized and internally preoccupied, with bizarre delusions of aliens being involved, also delusions of parasitic infection and persecutory delusions conspiracy against him. Appears internally preoccupied and is smiling, but is less isolative to room and seen in the social milieu. No aggressive behavior noted. MANAGEMENT PLAN: Increase Prolixin from 5 to 10 mg twice daily, home dose for psychosis. Plan for IM Prolixin on Sunday, order placed, continue on olanzapine 5 mg nightly home medication. Coordinated safety plan with social work, as he lives in unstable living environment and will require increased supports outpatient to monitor mental health and ensure safety. TIME SPENT: 25 minutes, including coordination of care. Vital Signs Vital Signs Date Time Temp Pulse Resp B/P (MAP) Pulse Ox O2 Delivery O2 Flow Rate FiO2 01/13/21 06:38 98.2 78 16 120/77 (91) 100 Room Air Current Medications Current Medications Medications (Trade) Dose Ordered Sig/Dylan Route PRN Reason Start Time Stop Time Status Last Admin Dose Admin Al Hydrox/Mg Hydrox/Simethicone (Mylanta) 30 ml Q4HP PRN PO HEARTBURN/INDIGESTION 01/11/21 13:20 Dimethicone (Vanicream Ointment) Apply to bottom of feet QHS TOP 01/11/21 21:00 01/12/21 21:02 Diphenhydramine HCl (Benadryl) 50 mg Q4HP PRN PO ANXIETY/AGITATION 01/11/21 13:20 01/11/21 16:58 Fluphenazine HCl (Prolixin) 5 mg BID PO 01/12/21 09:00 01/13/21 09:34 DC 01/13/21 08:35 Fluphenazine HCl (Prolixin) 10 mg BID PO 01/13/21 21:00 Haloperidol (Haldol) 5 mg Q4HP PRN PO ANXIETY/AGITATION 01/11/21 13:20 Cancel Home Med (Home Med List Complete!) ASDIRECTED XX 01/11/21 09:30 01/11/21 09:34 DC Ibuprofen (Advil) 400 mg Q6HP PRN PO MODERATE PAIN (PS 5-7) 01/11/21 13:20 Lorazepam (Ativan) 2 mg Q4HP PRN PO ANXIETY/AGITATION 01/11/21 13:20 01/11/21 16:58 Magnesium Hydroxide (Milk Of Magnesia) 30 ml DAILYPRN PRN PO CONSTIPATION 01/11/21 13:20 Olanzapine (ZyPREXA) 5 mg QHS PO 01/12/21 21:00 01/12/21 21:02 Olanzapine (ZyPREXA) 10 mg BID PO 01/11/21 21:00 01/12/21 11:04 DC 01/12/21 09:26 Trimethoprim/ Sulfamethoxazole (Bactrim Ds, Septra Ds 160mg/ 800mg) 1 tab BID PO 01/10/21 21:00 01/11/21 17:02 DC 01/11/21 09:16 Trimethoprim/ Sulfamethoxazole (Bactrim Ds, Septra Ds 160mg/ 800mg) 1 tab BID PO 01/11/21 21:00 01/16/21 20:59 01/13/21 08:35 Allergies Coded Allergies: haloperidol (Verified Allergy, Severe, BOUNCES OFF OG, 03/03/19) MEHNAZ JUAN MD Jan 13, 2021 13:21
[2021-01-13 18:07] VITALS: BP 167/86
[2021-01-13] MEDS: OLANZapine 5 MG TAB PO SCH (20:01)
[2021-01-13] MEDS: DIMETHICONE 2% OINTMENT(VANICREAM) 70GM TUBE TOP SCH (20:02)
[2021-01-14] MEDS: fluPHENAZine 5MG TABLET PO SCH ×2 (09:08→20:02)
[2021-01-14] MEDS: BACTRIM 160MG/800MG DS TAB PO SCH ×2 (09:08→20:02)
[2021-01-14] MEDS: NICOTINE 21MG/24HR 1 EA TRANSDERMAL TD SCH (09:15)
--- NOTE | 2021-01-14 15:58 | MHIPNPDOC ---
[facility] Progress Note Progress Note DATE OF SERVICE: 01/14/21 HISTORY: Patient is a 50 -year-old , male, extensive and lengthy history of schizophrenia, delusional disorder and noncompliance, reportedly living in his own apartment alone in [facility], no longer in [facility], who presents to the [facility] after calling EMS, in a disorganized and psychotic state. Initially on admission per PSA reported having aliens in his body. Interval: Charts reviewed, today is seen more frequently in the hallways as compared to yesterday. He is less resistant to discussion with acute paranoia, denies any bizarre energy waves or involvement with extraterrestrial beings as compared to yesterday. When asked what he thinks about taking medications, though does report that they are injecting him with old medications every time and this causes concern for injection, then goes on to state but I'm willing to take it. Today he is not overly concerned with persecutory delusions, as they are milder, rather he is able to endorse that he has a lengthy history of schizophrenia and requires medications. When asked what he thinks about returning home states, "I'm fine with that whatever". Made aware of Prolixin 25 mg IM SAAVEDRA ordered for next week. Denies acute side effects of medications, denies allergies, aims scoring per interview is 0 today. VITAL SIGNS: See below. NEW TEST RESULTS: Prolixin level is still pending CURRENT MEDICATIONS: See below. MENTAL STATUS EXAMINATION: Patient is a 50-year old male, who is in no acute distress, wearing hospital clothing, standing in the hallway, smiling to himself, short tsai hair, poor hygiene, thin, appears older than stated age. Speech: Is disorganized. Language skills are poor. Thought processes including: Disorganized. Thought content: Perseverates on bizarre conspiracies involving aliens. Abstract reasoning, and computation: Poor, unable to fully assess. Description of associations: Poor. Description of abnormal or psychotic thoughts: She does have mild persecutory delusions of being injected with medications every month, appears not to be reality based as been offered to send to his pharmacy for pickup states he believes it will not change anything and he will still be receiving medications, " because that is what they do" Judgment: Poor. Insight: Poor. Orientation: Unable to fully assess, not cooperative with questioning gets de railed and goes into psychotic symptoms. Recent and remote memory: Poor Attention span and concentration: Fair. Language: Azeri. Fund of knowledge: Unable to fully in acute of psychotic Mood: "Fine" Affect: Less disorganized, continues to use mild inappropriately at times, but less frequently, no longer acutely paranoid and making animalistic sounds DIAGNOSES: 1. Schizophrenia, paranoid type per history 2. Cannabis use disorder 3. Cellulitis, treated and followed by hospitalist team with Bactrim, 5-day course, on day 4 ASSESSMENT: Today reports fewer bizarre delusions, appears less less paranoid and starting to respond to medications, reports sleep and appetite are good, denies medication side effects and is agreeable to injection early next week. Continue to require stabilization for psychotic symptoms. MANAGEMENT PLAN: Continue Prolixin 10 mg twice daily, home dose for psychosis. Plan for IM Prolixin 25 mg SAAVEDRA on Sunday, order placed, continue on olanzapine 5 mg nightly home medication. He is agreeable to return to his apartment in [facility], also agreeable to continued stay until we are able to stabilize his psychotic symptoms. TIME SPENT: 30 minutes Vital Signs Vital Signs Date Time Temp Pulse Resp B/P (MAP) Pulse Ox O2 Delivery O2 Flow Rate FiO2 01/13/21 18:07 01/13/21 06:38 100 Room Air Current Medications Current Medications Medications (Trade) Dose Ordered Sig/Dylan Route PRN Reason Start Time Stop Time Status Last Admin Dose Admin Al Hydrox/Mg Hydrox/Simethicone (Mylanta) 30 ml Q4HP PRN PO HEARTBURN/INDIGESTION 01/11/21 13:20 Dimethicone (Vanicream Ointment) Apply to bottom of feet QHS TOP 01/11/21 21:00 01/13/21 20:02 Diphenhydramine HCl (Benadryl) 50 mg Q4HP PRN PO ANXIETY/AGITATION 01/11/21 13:20 01/11/21 16:58 Fluphenazine HCl (Prolixin) 5 mg BID PO 01/12/21 09:00 01/13/21 09:34 DC 01/13/21 08:35 Fluphenazine HCl (Prolixin) 10 mg BID PO 01/13/21 21:00 01/14/21 09:08 Haloperidol (Haldol) 5 mg Q4HP PRN PO ANXIETY/AGITATION 01/11/21 13:20 Cancel Home Med (Home Med List Complete!) ASDIRECTED XX 01/11/21 09:30 01/11/21 09:34 DC Ibuprofen (Advil) 400 mg Q6HP PRN PO MODERATE PAIN (PS 5-7) 01/11/21 13:20 Lorazepam (Ativan) 2 mg Q4HP PRN PO ANXIETY/AGITATION 01/11/21 13:20 01/11/21 16:58 Magnesium Hydroxide (Milk Of Magnesia) 30 ml DAILYPRN PRN PO CONSTIPATION 01/11/21 13:20 Nicotine (Nicoderm Cq 21mg) 1 patch DAILY TD 01/14/21 09:00 01/14/21 09:15 Olanzapine (ZyPREXA) 5 mg QHS PO 01/12/21 21:00 01/13/21 20:01 Olanzapine (ZyPREXA) 10 mg BID PO 01/11/21 21:00 01/12/21 11:04 DC 01/12/21 09:26 Trimethoprim/ Sulfamethoxazole (Bactrim Ds, Septra Ds 160mg/ 800mg) 1 tab BID PO 01/10/21 21:00 01/11/21 17:02 DC 01/11/21 09:16 Trimethoprim/ Sulfamethoxazole (Bactrim Ds, Septra Ds 160mg/ 800mg) 1 tab BID PO 01/11/21 21:00 01/16/21 20:59 01/14/21 09:08 Allergies Coded Allergies: haloperidol (Verified Allergy, Severe, BOUNCES OFF OG, 03/03/19) MEHNAZ JUAN MD Jan 14, 2021 15:58
[2021-01-14 16:10] VITALS: BP 122/77
[2021-01-14] MEDS: OLANZapine 5 MG TAB PO SCH (20:02)
[2021-01-14] MEDS: DIMETHICONE 2% OINTMENT(VANICREAM) 70GM TUBE TOP SCH (20:02)
[2021-01-15 06:10] VITALS: BP 97/60
[2021-01-15] MEDS: NICOTINE 21MG/24HR 1 EA TRANSDERMAL TD SCH (08:49)
[2021-01-15] MEDS: BACTRIM 160MG/800MG DS TAB PO SCH ×2 (08:49→20:05)
[2021-01-15] MEDS: fluPHENAZine 5MG TABLET PO SCH ×2 (08:49→20:05)
[2021-01-15 16:15] VITALS: BP 110/76
[2021-01-15] MEDS: IBUPROFEN 400MG TAB PO PRN (19:27)
[2021-01-15] MEDS: DIMETHICONE 2% OINTMENT(VANICREAM) 70GM TUBE TOP SCH (20:04)
[2021-01-15] MEDS: OLANZapine 5 MG TAB PO SCH (20:05)
[2021-01-16 06:10] VITALS: BP 99/59
[2021-01-16] MEDS: BACTRIM 160MG/800MG DS TAB PO SCH (09:02)
[2021-01-16] MEDS: NICOTINE 21MG/24HR 1 EA TRANSDERMAL TD SCH (09:02)
[2021-01-16] MEDS: fluPHENAZine 5MG TABLET PO SCH ×2 (09:02→20:25)
[2021-01-16 16:45] VITALS: BP 126/71
[2021-01-16] MEDS: DIMETHICONE 2% OINTMENT(VANICREAM) 70GM TUBE TOP SCH (20:24)
[2021-01-16] MEDS: IBUPROFEN 400MG TAB PO PRN (20:25)
[2021-01-16] MEDS: OLANZapine 5 MG TAB PO SCH (20:25)
[2021-01-17 06:21] VITALS: BP 99/57
[2021-01-17] MEDS: NICOTINE 21MG/24HR 1 EA TRANSDERMAL TD SCH (08:33)
[2021-01-17] MEDS: fluPHENAZine 5MG TABLET PO SCH ×2 (08:33→20:04)
[2021-01-17] MEDS ORDERED: fluPHENAZine DECAN 25MG/ML 5ML VIAL (J2680) IM SCH (12:00)
[2021-01-17] MEDS: IBUPROFEN 400MG TAB PO PRN (15:36)
[2021-01-17 17:20] VITALS: BP 138/88
[2021-01-17] MEDS: OLANZapine 5 MG TAB PO SCH (20:02)
[2021-01-17] MEDS: DIMETHICONE 2% OINTMENT(VANICREAM) 70GM TUBE TOP SCH (20:02)
[2021-01-18 06:38] VITALS: BP 123/78
[2021-01-18] MEDS: fluPHENAZine 5MG TABLET PO SCH ×3 (09:00→20:48)
[2021-01-18] MEDS: NICOTINE 21MG/24HR 1 EA TRANSDERMAL TD SCH (09:57)
[2021-01-18] MEDS: IBUPROFEN 400MG TAB PO PRN ×2 (11:58→20:46)
--- NOTE | 2021-01-18 14:44 | MHIPNPDOC ---
[facility] Progress Note Progress Note DATE OF SERVICE: 01/18/21 HISTORY: * Pt contacted EMS initially for leg pain, however he was noted be agitated and exhibiting psychotic symptoms. He was highly uncooperative upon arrival, therefore required chemical restraints. He has a long hx of Schizophrenia with numerous admissions to [facility]. Last admission was noted to be Sep, 2019. Chief Complaint * Pt states, "I called an ambulance because of my leg pain and they brought me here, but a lot of weird shit has been happening to me lately." Pt is drowsy during interview due to being chemically restrained upon arrival. He reports being highly agitated over the past few days due to people breaking into his apt and trying to kill him. States "2 or 3 aliens" went inside his body today and suspects they placed a chip somewhere in his body and are tracking him. Pt refers to the chip being a "legal signal?" Pt adamantly denies SI and HI, but does appear to be psychotic and is decompensating. Pt denies command AH, but appears to be delusional & internally pre-occupied. Pt has a long hx of Schizophrenia, currently seeks tx with [facility] however it is heavily suspected pt has not remained compliant with medication. Interview was limited as pt was becoming increasinly agitated, he refused to answer questions from PHQ-4, RODS, & CAGE. Mood Description VITAL SIGNS: See below. NEW TEST RESULTS: Oral Prolixin and Prolixin Decanoate shot given yesterday CURRENT MEDICATIONS: See below. MENTAL STATUS EXAMINATION: Patient is a 50-year old male, who is a patient with frequent admissions. Speech: Is rapid. Language skills are intact. Thought processes including: Thought disordered and rapid speech delusional thought paranoid thought. Thought content: As above. Abstract reasoning, and computation: Poor. Description of associations: Loose. Description of abnormal or psychotic thoughts: Psychotic thought is flagrant with paranoid thought, aliens, killing of his family Judgment: Poor. Insight: Poor. Orientation: X3. Recent and remote memory: Distorted. Attention span and concentration: Poor. Language: Intact. Fund of knowledge: Poor. Mood: Euthymic. Affect: Irritable. DIAGNOSES: 1. Chronic schizophrenia. 2. Possible noncompliance with meds. 3. None. ASSESSMENT: As above MANAGEMENT PLAN: Patient recently received Prolixin Decanoate but is still flagrantly psychotic. Will observe and see if patient needs further oral medication. TIME SPENT: 45 minutes. Vital Signs Vital Signs Date Time Temp Pulse Resp B/P (MAP) Pulse Ox O2 Delivery O2 Flow Rate FiO2 01/18/21 06:38 97.7 78 15 123/78 (93) 100 Room Air Current Medications Current Medications Medications (Trade) Dose Ordered Sig/Dylan Route PRN Reason Start Time Stop Time Status Last Admin Dose Admin Al Hydrox/Mg Hydrox/Simethicone (Mylanta) 30 ml Q4HP PRN PO HEARTBURN/INDIGESTION 01/11/21 13:20 Dimethicone (Vanicream Ointment) Apply to bottom of feet QHS TOP 01/11/21 21:00 01/17/21 20:02 Diphenhydramine HCl (Benadryl) 50 mg Q4HP PRN PO ANXIETY/AGITATION 01/11/21 13:20 01/11/21 16:58 Fluphenazine Decanoate (Prolixin Decanoate) 25 mg Q28D@12 IM 01/17/21 12:00 01/17/21 15:13 Fluphenazine HCl (Prolixin) 5 mg BID PO 01/12/21 09:00 01/13/21 09:34 DC 01/13/21 08:35 Fluphenazine HCl (Prolixin) 10 mg BID PO 01/13/21 21:00 01/17/21 08:33 Haloperidol (Haldol) 5 mg Q4HP PRN PO ANXIETY/AGITATION 01/11/21 13:20 Cancel Home Med (Home Med List Complete!) ASDIRECTED XX 01/11/21 09:30 01/11/21 09:34 DC Ibuprofen (Advil) 400 mg Q6HP PRN PO MODERATE PAIN (PS 5-7) 01/11/21 13:20 01/18/21 11:58 Lorazepam (Ativan) 2 mg Q4HP PRN PO ANXIETY/AGITATION 01/11/21 13:20 01/14/21 16:00 DC 01/11/21 16:58 Lorazepam (Ativan) 2 mg Q4HP PRN PO ANXIETY/AGITATION 01/14/21 16:00 Magnesium Hydroxide (Milk Of Magnesia) 30 ml DAILYPRN PRN PO CONSTIPATION 01/11/21 13:20 Nicotine (Nicoderm Cq 21mg) 1 patch DAILY TD 01/14/21 09:00 01/18/21 09:57 Olanzapine (ZyPREXA) 5 mg QHS PO 01/12/21 21:00 01/17/21 20:02 Olanzapine (ZyPREXA) 10 mg BID PO 01/11/21 21:00 01/12/21 11:04 DC 01/12/21 09:26 Trimethoprim/ Sulfamethoxazole (Bactrim Ds, Septra Ds 160mg/ 800mg) 1 tab BID PO 01/10/21 21:00 01/11/21 17:02 DC 01/11/21 09:16 Trimethoprim/ Sulfamethoxazole (Bactrim Ds, Septra Ds 160mg/ 800mg) 1 tab BID PO 01/11/21 21:00 01/16/21 20:59 DC 01/16/21 09:02 Allergies Coded Allergies: haloperidol (Verified Allergy, Severe, BOUNCES OFF OG, 03/03/19) RONNY BERRY MD Jan 18, 2021 14:44
--- NOTE | 2021-01-18 14:50 | MHIPNPDOC ---
[facility] Progress Note Allergies Coded Allergies: haloperidol (Verified Allergy, Severe, BOUNCES OFF OG, 03/03/19) RONNY BERRY MD Jan 18, 2021 14:50
[2021-01-18] MEDS: LORazepam 2 MG TAB PO PRN (17:11)
[2021-01-18 18:02] VITALS: BP 137/88
[2021-01-18 19:01] LABS: BASO % 0.4 % (0.0-1.0); EOS # 0.1 10^3/uL (0.0-0.5); HEMATOCRIT 46.6 % (42.0-52.0); HEMOGLOBIN 15.7 g/dl (13.5-17.5); LYMPH # 3.8 10^3/uL (1.5-5.0); LYMPH % 39.8 % (24.0-44.0); MEAN CORPUSCULAR HEMOGLOBIN 30.6 pg (27.0-33.0); MEAN CORPUSCULAR HGB CONC 33.7 g/dl (32.0-36.5); MEAN CORPUSCULAR VOLUME 90.8 fl (80.0-96.0); MONO # 0.7 10^3/uL (0.0-0.8); MONO % 6.8 % (2.0-8.0); NEUTROPHILS # 4.9 10^3/uL (1.5-8.5); NEUTROPHILS % 51.6 % (36.0-66.0); PLATELET COUNT, AUTOMATED 310 10^3/uL (150-450); RED BLOOD COUNT 5.13 10^6/uL (4.30-6.10); WHITE BLOOD COUNT 9.6 10^3/uL (4.0-10.0)
[2021-01-18 19:35] LABS: BLOOD UREA NITROGEN 15 MG/DL (7-18); CALCIUM LEVEL 9.2 MG/DL (8.5-10.1); CARBON DIOXIDE LEVEL 32 MEQ/L (21-32); CHLORIDE LEVEL 102 MEQ/L (98-107); CREATININE FOR GFR 0.93 MG/DL (0.70-1.30); GLOMERULAR FILTRATION RATE > 60.0 (>56); GLUCOSE, FASTING 121 MG/DL (70-100); MAGNESIUM LEVEL 1.9 MG/DL (1.8-2.4); POTASSIUM SERUM 4.9 MEQ/L (3.5-5.1); SODIUM LEVEL 138 MEQ/L (136-145)
[2021-01-18] MEDS: OLANZapine 5 MG TAB PO SCH (20:47)
[2021-01-18] MEDS: DIMETHICONE 2% OINTMENT(VANICREAM) 70GM TUBE TOP SCH (20:47)
[2021-01-19 06:52] VITALS: BP 122/75
[2021-01-19] MEDS: fluPHENAZine 5MG TABLET PO SCH ×2 (09:00→20:45)
[2021-01-19] MEDS: NICOTINE 21MG/24HR 1 EA TRANSDERMAL TD SCH (09:27)
[2021-01-19] MEDS: IBUPROFEN 400MG TAB PO PRN ×2 (11:05→20:45)
[2021-01-19] MEDS: LORazepam 2 MG TAB PO PRN (13:37)
--- NOTE | 2021-01-19 14:13 | MHIPNPDOC ---
[facility] Progress Note Progress Note DATE OF SERVICE: 01/19/21 * Pt contacted EMS initially for leg pain, however he was noted be agitated and exhibiting psychotic symptoms. He was highly uncooperative upon arrival, therefore required chemical restraints. He has a long hx of Schizophrenia with numerous admissions to [facility]. Last admission was noted to be Sep, 2019. Chief Complaint * Pt states, "I called an ambulance because of my leg pain and they brought me here, but a lot of weird shit has been happening to me lately." Pt is drowsy during interview due to being chemically restrained upon arrival. He reports being highly agitated over the past few days due to people breaking into his apt and trying to kill him. States "2 or 3 aliens" went inside his body today and suspects they placed a chip somewhere in his body and are tracking him. Pt refers to the chip being a "legal signal?" Pt adamantly denies SI and HI, but does appear to be psychotic and is decompensating. Pt denies command AH, but appears to be delusional & internally pre-occupied. Pt has a long hx of Schizophrenia, currently seeks tx with [facility] however it is heavily suspected pt has not remained compliant with medication. Interview was limited as pt was becoming increasinly agitated, he refused to answer questions from PHQ-4, RODS, & CAGE. Patient has requested to be discharged and is refusing to withdraw that request his main concerns today are his foot and leg pain we have prescribed antibiotic cream and dressing and will continue to evaluate his pain despite encouragement he is continuing to want to sign out this may involve a court procedure VITAL SIGNS: See below. NEW TEST RESULTS: None. CURRENT MEDICATIONS: See below. MENTAL STATUS EXAMINATION: Patient is a 50-year old male, who is insisting he was brought here for foot pain and not psychiatric care. Speech: Is normal in brief conversations but further conversation reveals significant psychotic thought. Staff does not feel it safe for him to be discharged. Language skills are intact. Thought processes including: As above paranoid psychotic thought. Thought content: Today more focused on his foot and leg pain and refusing to be treated here. Abstract reasoning, and computation: Poor abstraction. Description of associations: No loose associations noted today but conversations were not that long. Description of abnormal or psychotic thoughts: As above continued psychotic thought. Judgment: Poor. Insight: Poor. Orientation: X3. Recent and remote memory: Difficult to measure. Attention span and concentration: Intact. Language: No disturbance. Fund of knowledge: Hard to determine. Mood: Euthymic. Affect: Neutral. DIAGNOSES: 1. Schizophrenia. 2. None. 3. None. ASSESSMENT: Noncompliance in this 50-year-old male with schizophrenia MANAGEMENT PLAN: At the moment we will try to convince him to take medication and stay. He has already had a decanoate shot and we will observe if there are any problems with that shot. TIME SPENT: 40 minutes. Vital Signs Vital Signs Date Time Temp Pulse Resp B/P (MAP) Pulse Ox O2 Delivery O2 Flow Rate FiO2 01/19/21 06:52 98.4 73 20 122/75 (91) 95 Room Air Laboratory Data 24H Labs Laboratory Tests 2 01/18/21 18:24: Immature Granulocyte % (Auto) 0.4, Neutrophils (%) (Auto) 51.6, Lymphocytes (%) (Auto) 39.8, Monocytes (%) (Auto) 6.8, Eosinophils (%) (Auto) 1.0, Basophils (%) (Auto) 0.4, Neutrophils # (Auto) 4.9, Lymphocytes # (Auto) 3.8, Monocytes # (Auto) 0.7, Eosinophils # (Auto) 0.1, Basophils # (Auto) 0.0, Nucleated Red Blood Cells % (auto) 0.0, Anion Gap 4L, Glomerular Filtration Rate > 60.0, C alcium Level 9.2, Magnesium Level 1.9 CBC/BMP Laboratory Tests 01/18/21 18:24 Current Medications Current Medications Medications (Trade) Dose Ordered Sig/Dylan Route PRN Reason Start Time Stop Time Status Last Admin Dose Admin Al Hydrox/Mg Hydrox/Simethicone (Mylanta) 30 ml Q4HP PRN PO HEARTBURN/INDIGESTION 01/11/21 13:20 Dimethicone (Vanicream Ointment) Apply to bottom of feet QHS TOP 01/11/21 21:00 01/18/21 20:47 Diphenhydramine HCl (Benadryl) 50 mg Q4HP PRN PO ANXIETY/AGITATION 01/11/21 13:20 01/11/21 16:58 Fluphenazine Decanoate (Prolixin Decanoate) 25 mg Q28D@12 IM 01/17/21 12:00 9/6/21 15:13 Fluphenazine HCl (Prolixin) 5 mg BID PO 01/12/21 09:00 01/13/21 09:34 DC 01/13/21 08:35 Fluphenazine HCl (Prolixin) 10 mg BID PO 01/13/21 21:00 01/17/21 08:33 Haloperidol (Haldol) 5 mg Q4HP PRN PO ANXIETY/AGITATION 01/11/21 13:20 Cancel Home Med (Home Med List Complete!) ASDIRECTED XX 01/11/21 09:30 01/11/21 09:34 DC Ibuprofen (Advil) 400 mg Q6HP PRN PO MODERATE PAIN (PS 5-7) 01/11/21 13:20 01/19/21 11:05 Lorazepam (Ativan) 2 mg Q4HP PRN PO ANXIETY/AGITATION 01/11/21 13:20 01/14/21 16:00 DC 01/11/21 16:58 Lorazepam (Ativan) 2 mg Q4HP PRN PO ANXIETY/AGITATION 01/14/21 16:00 01/18/21 17:11 Magnesium Hydroxide (Milk Of Magnesia) 30 ml DAILYPRN PRN PO CONSTIPATION 01/11/21 13:20 Miscellaneous (Unresolved Clarification Entry) SEE LABEL COMMENTS DAILY XX 01/19/21 09:00 01/19/21 12:06 DC Nicotine (Nicoderm Cq 21mg) 1 patch DAILY TD 01/14/21 09:00 01/19/21 09:27 Olanzapine (ZyPREXA) 5 mg QHS PO 01/12/21 21:00 01/19/21 11:52 DC 01/18/21 20:47 Olanzapine (ZyPREXA) 10 mg BID PO 01/11/21 21:00 01/12/21 11:04 DC 01/12/21 09:26 Olanzapine (ZyPREXA) 10 mg QHS PO 01/19/21 21:00 02/10/21 21:00 Trimethoprim/ Sulfamethoxazole (Bactrim Ds, Septra Ds 160mg/ 800mg) 1 tab BID PO 01/10/21 21:00 01/11/21 17:02 DC 01/11/21 09:16 Trimethoprim/ Sulfamethoxazole (Bactrim Ds, Septra Ds 160mg/ 800mg) 1 tab BID PO 01/11/21 21:00 01/16/21 20:59 DC 01/16/21 09:02 Allergies Coded Allergies: haloperidol (Verified Allergy, Severe, BOUNCES OFF OG, 03/03/19) RONNY BERRY MD Jan 19, 2021 14:13
[2021-01-19] MEDS: NEOSPORIN TOP OINT 15GM TOP SCH (19:02)
[2021-01-19] MEDS: OLANZapine 5 MG TAB PO SCH (20:44)
[2021-01-19] MEDS: DIMETHICONE 2% OINTMENT(VANICREAM) 70GM TUBE TOP SCH (20:45)
[2021-01-20 06:05] VITALS: BP 148/86
[2021-01-20] MEDS: fluPHENAZine 5MG TABLET PO SCH ×2 (08:52→21:00)
[2021-01-20] MEDS: NICOTINE 21MG/24HR 1 EA TRANSDERMAL TD SCH (08:53)
[2021-01-20] MEDS: NEOSPORIN TOP OINT 15GM TOP SCH ×2 (08:54→21:00)
[2021-01-20] MEDS: IBUPROFEN 400MG TAB PO PRN ×2 (08:54→21:44)
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
[2021-01-20 18:26] VITALS: BP 146/93
[2021-01-20] MEDS: DIMETHICONE 2% OINTMENT(VANICREAM) 70GM TUBE TOP SCH (21:00)
[2021-01-20] MEDS: OLANZapine 5 MG TAB PO SCH (21:43)
[2021-01-21 06:45] VITALS: BP 146/94
[2021-01-21] MEDS: NICOTINE 21MG/24HR 1 EA TRANSDERMAL TD SCH (09:00)
[2021-01-21] MEDS: fluPHENAZine 5MG TABLET PO SCH (09:00)
[2021-01-21] MEDS: NEOSPORIN TOP OINT 15GM TOP SCH (09:00)
--- NOTE | 2021-01-21 09:35 | MHDSPDOC ---
[facility] Discharge Summary Discharge Summary DATE OF ADMISSION: Jan 11, 2021 at 13:17 DATE OF DISCHARGE: Jan DISCHARGE DIAGNOSES: 1.Schizophrenia REASON FOR ADMISSION: History of Present Illness HISTORY OF THE PRESENT ILLNESS: Patient is a 50 -year-old , male, extensive and lengthy history of schizophrenia, delusional disorder and noncompliance who [facility] after calling [facility], in a disorganized and psychotic state. Initially on admission per PSA reported having aliens in his body. Today on interview he is disheveled and disorganized. He talks about bizarre delusions including bad people coming to get him out of his apartment because they use a digital form of manipulating him in his mind, controlling his mind. Makes nonsensical statements and clang associations. During our interview he is concerned that I am controlling his mind and states that "I am not the fish they digitally intervened with insanity perceived upon call". When asked about starting him on his home medications he states " the thought is and the pumped it into me". "They are jealous to trade [place] for insanity for control". Patient appears to be internally preoccupied, states he will not go back to his home which she reports is an apartment in [place], [place] because "it is a nightmare with crooked people there a lot of bad stuff going on". When asked to elaborate is unable to provide any meaningful information. Does not answer questions about suicidal or homicidal ideation, but does not appear to be overtly agitated or threatening, per nursing staff has not been aggressive on previous admissions. Psychiatric Review of Systems Depression (2 or more weeks): difficulty concentrating Shelly (4 or more days of): expansive mood, distractibility Psychosis: auditory hallucination, visual hallucination, delusions, paranoia, disorganization Anxiety/ 6 months or more of: sleep disturbance Past Psychiatric History Previous Psychiatric Diagnosis: Long history of schizophrenia, delusional disorder Previous Psychiatric Admissions: Multiple more than 10, last admission was October 08, 2019 for 2 weeks in context of stopping medications. Suicide Attempts: No clear suicide attempts per chart review Psychiatric Follow-up: Likely does not have currently, will need to review with treatment team and social work to assess further Psychiatric medications: Per chart review was last discharged with Prolixin 10 mg twice daily, 25 mg Prolixin SAAVEDRA monthly, olanzapine 5 mg nightly TREATMENT AND PROGRESS ON THE UNIT : Patient received Prolixin Decanoate shot on 01/19/2021. He refused any oral Prolixin was cooperative and compliant and demonstrated no aggressive or behavior nor did he express any suicidal ideation. He continued to express delusional thoughts but did so calmly and these are apparent chronic delusions of a paranoid nature. He continues in outpatient c are and was discharged to follow-up HOSPITAL COURSE: As above DISCHARGE ASSESSMENT: Schizophrenia MENTAL STATUS EXAMINATION ON DISCHARGE: Patient is a 50-year old male, who is discharged with diagnosis of chronic schizophrenia. Speech is no abnormalities. Language skills are intact. Thought processes including: Chronic paranoid delusions. Thought content: As above. Abstract reasoning, and computation: Able to abstract and computer. Description of associations: Loose associations of paranoid thought. Description of abnormal or psychotic thoughts: As above chronic paranoid thought of aliens and previous aggressive actions towards him. Judgment: Fair. Insight: Poor. Orientation to x3. Recent and remote memory: Distorted. Attention span and concentration: Intact. Language: As above. Fund of knowledge: Limited. Mood: Good. Affect: Bright. MEDICATIONS ON DISCHARGE: -Patient will be returned to clinic for Prolixin Decanoate shots in 1 month. He is noncompliant with oral medication. PLAN/FOLLOWUP ARRANGEMENTS: He will follow-up with community clinic as previously arranged. The amount of time spent in the coordination of care for this patient was approximately 35 minutes. ETOH/Disorder Med Rx ETOH/DRUG DISORDER RX: N/A Vital Signs/I&Os Vital Signs Date Time Temp Pulse Resp B/P (MAP) Pulse Ox O2 Delivery O2 Flow Rate FiO2 01/21/21 06:45 97.7 70 18 146/94 (111) 96 Room Air Medications Scheduled Olanzapine (Olanzapine) 20 Mg Tablet, 10 MG PO BID, (Reported) Allergies Coded Allergies: haloperidol (Verified Allergy, Severe, BOUNCES OFF OG, 03/03/19) RONNY BERRY MD Jan 21, 2021 09:35
== END 2021-01-21 10:33 | disposition home or self-care (01) | DRG 750 ==
LOC: EDUNIT# 16:06 → EDBD 16:06 → M ED 16:06 → M ED INP 01-11 13:17 → M PSY 01-11 14:44
PROVIDERS: ADMIT Student in an Organized Health Care Education/Training Program; ATTEND Psychiatry & Neurology Child & Adolescent Psychiatry
DX: F20.1 Disorganized schizophrenia (principal); L03.115 Cellulitis of right lower limb; Z91.19 Patient's noncompliance with other medical treatment and regimen; L03.116 Cellulitis of left lower limb; Z88.8 Allergy status to other drugs, medicaments and biological substances; F17.200 Nicotine dependence, unspecified, uncomplicated; Z79.899 Other long term (current) drug therapy

== ENCOUNTER 2021-07-19 13:12 | Emergency (ER) | payer OTHER, MEDICAID ==
[~2021-07-19] VITALS: Ht 180.3 cm; Wt 98.4 kg
[~2021-07-19 13:12] MED LIST changes: +MED REC COMMENT; +OLAN20TA14 PO
[2021-07-19] MEDS ORDERED: OLAN1TAB20 PO (15:48)
[2021-07-19] MEDS ORDERED: LIDOCAINE W/EPINEPHRINE 1% 20ML VIAL SC ONE (16:15)
[2021-07-19] MEDS ORDERED: DOXYCYCLINE HYCLATE 100MG TABLET PO ONE (16:30)
[2021-07-19] MEDS ORDERED: DOXY-350 PO (16:34)
[2021-07-19 16:38] VITALS: BP 150/92
== END 2021-07-19 16:59 | disposition home or self-care (01) ==
LOC: EDBD 13:12 → M ED 13:12
DX: L03.211 Cellulitis of face (principal); R22.0 Localized swelling, mass and lump, head; F20.9 Schizophrenia, unspecified; Z88.8 Allergy status to other drugs, medicaments and biological substances

== ENCOUNTER 2021-07-21 08:42 | Emergency (ER) | payer OTHER, MEDICAID ==
[~2021-07-21] VITALS: Ht 180.3 cm; Wt 89.5 kg
[~2021-07-21 08:42] MED LIST changes: +DOXY-350 PO; +OLAN1TAB20 PO
[2021-07-21] MEDS ORDERED: BACT800T5 PO (10:20)
[2021-07-21 10:50] VITALS: BP 142/82
== END 2021-07-21 10:52 | disposition home or self-care (01) ==
LOC: M ED 08:42
DX: L03.211 Cellulitis of face (principal); L03.116 Cellulitis of left lower limb; F20.9 Schizophrenia, unspecified; F17.200 Nicotine dependence, unspecified, uncomplicated; Z79.899 Other long term (current) drug therapy; Z88.8 Allergy status to other drugs, medicaments and biological substances

== ENCOUNTER 2022-09-08 11:58 | Inpatient (IN) | payer OTHER, MEDICAID ==
[~2022-09-08 11:58] MED LIST changes: +BACT800T5 PO; -BENZ-52 PO; +BENZ1TAB5 PO; -DOXY-350 PO; +DOXY-444 PO
[2022-09-08 12:49] LABS: HEMATOCRIT 48.5 % (42.0-52.0); HEMOGLOBIN 15.9 g/dl (13.5-17.5); MEAN CORPUSCULAR HEMOGLOBIN 30.1 pg (27.0-33.0); MEAN CORPUSCULAR HGB CONC 32.8 g/dl (32.0-36.5); MEAN CORPUSCULAR VOLUME 91.9 fl (80.0-96.0); PLATELET COUNT, AUTOMATED 250 10^3/uL (150-450); RED BLOOD COUNT 5.28 10^6/uL (4.30-6.10); WHITE BLOOD COUNT 11.2 10^3/uL (4.0-10.0)
[2022-09-08 13:17] LABS: AMPHETAMINES LEVEL URINE NEGATIVE (NEGATIVE); BARBITURATES URINE NEGATIVE (NEGATIVE); BENZODIAZEPINES URINE NEGATIVE (NEGATIVE); CANNABINOIDS URINE POSITIVE (NEGATIVE); COCAINE METABOLITE URINE NEGATIVE (NEGATIVE); METHADONE URINE NEGATIVE (NEGATIVE); OPIATES URINE NEGATIVE (NEGATIVE); PHENCYCLIDINE URINE NEGATIVE (NEGATIVE)
[2022-09-08 13:19] LABS: ETHYL ALCOHOL (ETHANOL) 0.003 % (0.000-0.010)
[2022-09-08 13:20] LABS: SALICYLATE LEVEL < 3.0 MG/DL (<30)
[2022-09-08 13:21] LABS: ACETAMINOPHEN LEVEL < 2.0 UG/ML (10.0-20.0); ALKALINE PHOSPHATASE 55 U/L (46-116); ALT/SGPT 19 U/L (7.0-40); AST/SGOT 18 U/L (<34); BILIRUBIN,DIRECT 0.4 MG/DL (<0.4); BILIRUBIN,TOTAL 1.7 MG/DL (0.3-1.2); BLOOD UREA NITROGEN 13 MG/DL (9-23); CALCIUM LEVEL 9.5 MG/DL (8.5-10.1); CARBON DIOXIDE LEVEL 29 MMOL/L (20-31); CHLORIDE LEVEL 103 MMOL/L (98-107); CREATININE FOR GFR 0.76 MG/DL (0.70-1.30); GLOMERULAR FILTRATION RATE > 60.0 (>56); GLUCOSE, FASTING 138 MG/DL (60-100); POTASSIUM SERUM 4.1 MMOL/L (3.5-5.1); SODIUM LEVEL 141 MMOL/L (136-145); TOTAL PROTEIN 7.3 G/DL (5.7-8.2)
[2022-09-08 13:23] LABS: THYROID STIMULATING HORMONE 0.605 uIU/ML (0.55-4.78)
[2022-09-08] MEDS ORDERED: MOM 30ML SUSPENSION UDC PO PRN (17:00)
[2022-09-08] MEDS ORDERED: diphenhydrAMINE 25MG CAP PO PRN (17:00)
[2022-09-08] MEDS ORDERED: MAALOX 30 ML SUSP *UDC PO PRN (17:00)
[2022-09-08] MEDS ORDERED: traZODone 50 MG TAB PO PRN (17:00)
[2022-09-08] MEDS: NICOTINE 21MG/24HR 1 EA TRANSDERMAL TD SCH (20:30)
[2022-09-08] MEDS: IBUPROFEN 400MG TAB PO PRN (20:31)
[2022-09-08] MEDS ORDERED: OLANZapine 10 MG TAB PO SCH (21:00)
[2022-09-09 06:23] VITALS: BP 105/59
[2022-09-09] MEDS: NICOTINE 21MG/24HR 1 EA TRANSDERMAL TD SCH (07:36)
[2022-09-09] MEDS: IBUPROFEN 400MG TAB PO PRN (07:36)
[2022-09-09] MEDS ORDERED: HOME MED LIST COMPLETE! XX SCH (08:15)
[2022-09-09] MEDS: OLANZapine ORAL DISINTEGRATING TAB 5MG PO PRN (08:30)
[2022-09-09] MEDS: OLANZapine 10 MG TAB PO SCH ×2 (10:39→20:50)
[2022-09-09] MEDS: ACETAMINOPHEN TAB 650MG DOSE (2X325MG) PO PRN (20:50)
[2022-09-10 07:15] LABS: CHOLESTEROL RISK RATIO 6.37 (<5); HDL CHOLESTEROL 37.5 MG/DL (>40); LDL CHOLESTEROL 162.5 MG/DL (<100); NON-HDL-C 201.5 MG/DL
[2022-09-10] MEDS: OLANZapine 10 MG TAB PO SCH ×2 (08:15→20:30)
[2022-09-10] MEDS: ACETAMINOPHEN TAB 650MG DOSE (2X325MG) PO PRN ×2 (08:15→15:59)
[2022-09-10] MEDS: NICOTINE 21MG/24HR 1 EA TRANSDERMAL TD SCH (08:16)
[2022-09-10] MEDS ORDERED: ERYTHROMYCIN OPHTH OINT OD PRN (09:15)
[2022-09-10] MEDS: OLANZapine ORAL DISINTEGRATING TAB 5MG PO PRN (10:05)
[2022-09-10 15:51] VITALS: BP 137/80
[2022-09-10] MEDS: IBUPROFEN 400MG TAB PO PRN (20:30)
[2022-09-11 06:19] VITALS: BP 144/81
[2022-09-11] MEDS: OLANZapine 10 MG TAB PO SCH ×2 (08:15→20:36)
[2022-09-11] MEDS: NICOTINE 21MG/24HR 1 EA TRANSDERMAL TD SCH (08:17)
[2022-09-11] MEDS: ERYTHROMYCIN OPHTH OINT OD SCH ×3 (11:31→20:36)
[2022-09-11] MEDS: ACETAMINOPHEN TAB 650MG DOSE (2X325MG) PO PRN ×2 (14:40→20:40)
[2022-09-11 18:36] VITALS: BP 132/81
[2022-09-11] MEDS: OLANZapine ORAL DISINTEGRATING TAB 5MG PO PRN (19:38)
[2022-09-12 06:19] VITALS: BP 129/77
[2022-09-12] MEDS: OLANZapine 10 MG TAB PO SCH ×2 (09:14→20:06)
[2022-09-12] MEDS: NICOTINE 21MG/24HR 1 EA TRANSDERMAL TD SCH (09:15)
[2022-09-12] MEDS: ERYTHROMYCIN OPHTH OINT OD SCH ×3 (09:16→20:07)
[2022-09-12] MEDS: OMEGA-3 1000MG CAPSULE PO SCH ×2 (12:00→20:06)
[2022-09-12 17:13] VITALS: BP 130/73
[2022-09-12] MEDS: ACETAMINOPHEN TAB 650MG DOSE (2X325MG) PO PRN (20:07)
[2022-09-12] MEDS: OLANZapine ORAL DISINTEGRATING TAB 5MG PO PRN (21:51)
[2022-09-13 06:00] VITALS: BP 128/84
[2022-09-13] MEDS: OLANZapine 10 MG TAB PO SCH (08:22)
[2022-09-13] MEDS: OMEGA-3 1000MG CAPSULE PO SCH (08:22)
[2022-09-13] MEDS: ERYTHROMYCIN OPHTH OINT OD SCH (08:23)
[2022-09-13] MEDS: ACETAMINOPHEN TAB 650MG DOSE (2X325MG) PO PRN (08:23)
[2022-09-13] MEDS: NICOTINE 21MG/24HR 1 EA TRANSDERMAL TD SCH (08:26)
[2022-09-13] MEDS ORDERED: ERYT5OIN25 OD (09:46)
[2022-09-13] MEDS ORDERED: OLAN1TAB20 PO (09:46)
[2022-09-13] MEDS ORDERED: NICO21PAT TD (09:46)
[2022-09-13] MEDS ORDERED: FISH1CAP26 PO (09:46)
== END 2022-09-13 12:40 | disposition home or self-care (01) | DRG 885 ==
LOC: M ED 11:58 → EDBD 11:58 → M PSY 16:56 → M ED 18:30
PROVIDERS: ADMIT Student in an Organized Health Care Education/Training Program; ATTEND Student in an Organized Health Care Education/Training Program
DX: F20.0 Paranoid schizophrenia (principal); F12.90 Cannabis use, unspecified, uncomplicated